=== PATIENT | female | born 1945 | race Caucasian/White ===

== ENCOUNTER 2018-10-08 08:49 | Day surgery (SDC) | payer MEDICARE, OTHER, SELFPAY ==
[2018-10-08 09:51] VITALS: BP 112/62; PULSE 65; RESP 16; TEMP 36.9; O2SAT 100; BMI 24.7
[2018-10-08] MEDS: PROPARACAINE 0.5% OPHTH SOL 2 DROPS EYE-OP (10:13)
[2018-10-08] MEDS: CATARACT EYE COMPOUND (10 DROPS/SYRINGE) 3 DROPS EYE-OP (10:20)
--- NOTE | 2018-10-08 11:08 | PM.PREOP ---
Pre-operative Note Interval Note History & Physical reviewed/Exam performed by Physician: No Changes to H&P: No
--- NOTE | 2018-10-08 11:08 | PM.OP.1 ---
Operative Date/Time/Diagnoses Pre-op diagnosis: Nuclear Cataract Left eye Post-op diagnosis: same Procedure & Clinicians Surgeon: Elijah Courtney Anesthesia Type: MAC +/- and Sedation Operative Notes Procedure in detail: Patient brought to the operating suite. Tetracaine drops placed in the left eye. Patient was prepped and draped in sterile manner. Wire lid speculum was placed in the eye. Betadine drops were placed on the eye. This was irrigated. Lidocaine jelly was placed on the eye. A paracentesis port was created with a side-port blade. 0.1 mL 1% preservative free lidocaine was injected into the anterior chamber. The anterior chamber was deepened with viscoelastic. 2.6 mm keratome was used to create a temporal clear corneal incision. Cystotome and Utrata forceps were used to create continuous tear capsulorrhexis. Balanced salt solution was used to hydro dissect the nucleus. The phacoemulsification handpiece was inserted and the nucleus was removed using the stop and chop technique. The irrigation aspiration handpiece was inserted and the remaining cortex was removed. Anterior chamber was deepened with viscoelastic. An Pemberton ZCB00 intraocular lens with a power of 16.0 was injected into the capsular bag. Irrigation aspiration handpiece was inserted and the remaining viscoelastic was removed. Incision was hydrated with balanced salt solution and found to be leak free with pressure with Weck-Natividad sponges. 0.1 mL Vigamox injected anterior chamber. 0.3 mL Kenalog 10 mg was injected subconjunctivally. Lid speculum was removed. The patient left the operating room in excellent condition. Complications: none Condition: stable Disposition: same day surgery
[2018-10-08] MEDS: PHENYLEPHRINE/LIDOCAINE VIAL (OR) 0.2 ML EYE-OP (11:31)
[2018-10-08] MEDS: CHONDROIDTIN/SOD HYALURONATE 1.05 ML SYRINGE INTRAOCULA (11:31)
[2018-10-08] MEDS: TRIAMCINOLONE 50 MG/5 ML VIAL INJ (11:31)
[2018-10-08] MEDS: MOXIFLOXACIN OPHTH DROPS 3 ML BOTTLE 2 DROPS INJ (11:31)
[2018-10-08] MEDS: TETRACAINE 0.5% OPHTH DROPS 4 ML 2 DROPS EYE-OP (11:32)
[2018-10-08] MEDS: LIDOCAINE JELLY 2% 5 ML 1 APPLIC TOP (11:32)
[2018-10-08] MEDS: BALANCED SALT IRRIG SOLN NO.2 500 ML, EPINEPHrine 1 MG IRR (11:32)
[2018-10-08 11:40] VITALS: BP 114/65; PULSE 58; RESP 16; TEMP 36.4; O2SAT 100
--- NOTE | 2018-10-08 12:12 | SUR.PHASEII ---
asssited pt to dress, left when ready and left in stable condition.
== END 2018-10-08 12:11 ==
LOC: OR 08:51
PROVIDERS: Visit Provider Ophthalmology
DX: H25.12 Age-related nuclear cataract, left eye (principal); G20 Parkinson's disease
CPT/HCPCS: J0171; J2250; J3010; J3301

== ENCOUNTER 2018-10-22 11:08 | Day surgery (SDC) | payer MEDICARE, OTHER, SELFPAY ==
[2018-10-22 12:37] VITALS: BP 109/73; PULSE 54; RESP 16; TEMP 36.7; O2SAT 98; BMI 23.1
[2018-10-22] MEDS: PROPARACAINE 0.5% OPHTH SOL 2 DROPS EYE-OP (12:46)
[2018-10-22] MEDS: CATARACT EYE COMPOUND (10 DROPS/SYRINGE) 3 DROPS EYE-OP (12:54)
--- NOTE | 2018-10-22 13:24 | PM.PREOP ---
Pre-operative Note Interval Note History & Physical reviewed/Exam performed by Physician: No Changes to H&P: No
--- NOTE | 2018-10-22 13:25 | PM.OP.1 ---
Operative Date/Time/Diagnoses Pre-op diagnosis: Nuclear cataract right eye Procedure & Clinicians Procedure: Cataract Surgery Same procedure as scheduled: Yes Surgeon: Elijah Courtney Anesthesia Type: MAC +/- and Sedation Operative Notes Procedure in detail: Patient brought to the operating suite. Tetracaine drops placed in the right eye. Patient was prepped and draped in sterile manner. Wire lid speculum was placed in the eye. Betadine drops were placed on the eye. This was irrigated. Lidocaine jelly was placed on the eye. A paracentesis port was created with a side-port blade. 0.1 mL 1% preservative free lidocaine was injected into the anterior chamber. The anterior chamber was deepened with viscoelastic. 2.6 mm keratome was used to create a temporal clear corneal incision. Cystotome and Utrata forceps were used to create continuous tear capsulorrhexis. Balanced salt solution was used to hydro dissect the nucleus. The phacoemulsification handpiece was inserted and the nucleus was removed using the stop and chop technique. The irrigation aspiration handpiece was inserted and the remaining cortex was removed. Anterior chamber was deepened with viscoelastic. An Pemberton ZCB00 intraocular lens with a power of 17.5 was injected into the capsular bag. Irrigation aspiration handpiece was inserted and the remaining viscoelastic was removed. Incision was hydrated with balanced salt solution and found to be leak free with pressure with Weck-Natividad sponges. 0.1 mL Vigamox injected anterior chamber. 0.3 mL Kenalog 10 mg was injected subconjunctivally. Lid speculum was removed. The patient left the operating room in excellent condition. Complications: none Condition: stable Disposition: same day surgery
[2018-10-22] MEDS: PHENYLEPHRINE/LIDOCAINE VIAL (OR) 0.2 ML EYE-OP (13:45)
[2018-10-22] MEDS: TRIAMCINOLONE 50 MG/5 ML VIAL INJ (13:46)
[2018-10-22] MEDS: CHONDROIDTIN/SOD HYALURONATE 1.05 ML SYRINGE INTRAOCULA (13:46)
[2018-10-22] MEDS: TETRACAINE 0.5% OPHTH DROPS 4 ML 2 DROPS EYE-OP (13:46)
[2018-10-22] MEDS: MOXIFLOXACIN OPHTH DROPS 3 ML BOTTLE 2 DROPS INJ (13:46)
[2018-10-22] MEDS: LIDOCAINE JELLY 2% 5 ML 1 APPLIC TOP (13:46)
[2018-10-22] MEDS: BALANCED SALT IRRIG SOLN NO.2 500 ML, EPINEPHrine 1 MG IRR (13:47)
[2018-10-22 14:00] VITALS: BP 104/67; PULSE 67; RESP 20; TEMP 37.2; O2SAT 97
[2018-10-22 14:30] VITALS: BP 100/68; PULSE 68; RESP 20; TEMP 37.1; O2SAT 98
== END 2018-10-22 14:13 ==
LOC: OR 11:10
PROVIDERS: Visit Provider Ophthalmology
DX: H25.11 Age-related nuclear cataract, right eye (principal); G20 Parkinson's disease
CPT/HCPCS: J0171; J2250; J3301

== ENCOUNTER 2020-05-08 17:40 | Emergency (ER) | payer MEDICARE, OTHER, SELFPAY ==
--- NOTE | 2020-05-08 | DI.RAD.S_ITS ---
PROCEDURE: XR CLAVICLE LT INDICATIONS: FALL TECHNIQUE: 2 views of the clavicle were acquired. COMPARISON: None. FINDINGS: Bones: There is a comminuted, displaced, impacted, angulated distal left clavicular fracture. The acromioclavicular joint and glenohumeral joints appear intact. Visualized portions of the ribs are intact. Soft tissues: No suspicious soft tissue calcifications. IMPRESSION: Clavicular fracture as above. Dictated by: Marie Tracy M.D. on 05/08/2020 at 19:00 Approved by: Marie Tracy M.D. on 05/08/2020 at 19:01
[2020-05-08 17:53] VITALS: BP 182/83; PULSE 71; RESP 16; TEMP 36.6; O2SAT 99
--- NOTE | 2020-05-08 17:56 | DI.RAD.S_ITS ---
PROCEDURE: XR WRIST LT MIN 3V INDICATIONS: L wrist pain and bruising post fall TECHNIQUE: 3 views of the wrist were acquired. COMPARISON: [facility], CR, XR ELBOW LT 2V, 05/08/2020, 18:06. FINDINGS: Bones: No fractures or dislocations. No suspicious bony lesions. Scaphoid view: The scaphoid is intact. Soft tissues: No suspicious soft tissue calcifications. IMPRESSION: No acute radiographic findings. If pain persists, followup imaging in 5-7 days is recommended to exclude occult fracture. Dictated by: Marie Tracy M.D. on 05/08/2020 at 18:37 Approved by: Marie Tracy M.D. on 05/08/2020 at 18:38
--- NOTE | 2020-05-08 17:56 | DI.RAD.S_ITS ---
PROCEDURE: XR ELBOW LT 2V INDICATIONS: L elbow pain post fall TECHNIQUE: 2 views of the elbow were acquired. COMPARISON: None. FINDINGS: Bones: This is a limited study without true lateral view. No fractures or dislocations. No suspicious bony lesions. Soft tissues: No elbow joint effusion. No suspicious soft tissue calcifications. IMPRESSION: Limited study. No acute radiographic findings. If pain persists, followup imaging in 5-7 days is recommended to exclude occult fracture. Dictated by: Marie Tracy M.D. on 05/08/2020 at 18:34 Approved by: Marie Tracy M.D. on 05/08/2020 at 18:36
--- NOTE | 2020-05-08 17:56 | DI.RAD.S_ITS ---
PROCEDURE: XR SHOULDER LT MIN 2V INDICATIONS: L shoulder pain distal clavical deformity post fall TECHNIQUE: 3 views of the shoulder were acquired. COMPARISON: None. FINDINGS: Bones: There is a displaced, angulated, impacted clavicle fracture. The glenohumeral joint is intact. The acromioclavicular joint is intact. Soft tissues: No suspicious soft tissue calcifications. IMPRESSION: Impacted, comminuted, angulated and displaced clavicular fracture. Dictated by: Marie Tracy M.D. on 05/08/2020 at 18:58 Approved by: Marie Tracy M.D. on 05/08/2020 at 18:59
--- NOTE | 2020-05-08 18:01 | PC.NURSE ---
states has history of Parkinsons and that she needs to take her Carbidopa/Levodopa home medication. Provider Dot confirmed with spouse and patient that it is okay to do so.
--- NOTE | 2020-05-08 18:21 | ED.UPPEXIN ---
HPI - Extremity Injury (Upper) <ENOCH George - Last Filed: 05/08/20 21:02> General Chief Complaint: Extremity Injury, Upper Stated Complaint: Lt shoulder bump and bruising post fall Time Seen by Provider: 05/08/20 17:41 Source: patient Mode of arrival: Family Vehicle Limitations: no limitations History of Present Illness HPI narrative: 75-year-old female with history of dementia and Parkinson's, presents emergency department with her for left shoulder pain post fall. 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 She has bruising on her left shoulder, left elbow, and left wrist. Has been states that she slightly fell on her left cheek. He declines head CT. Patient and deny any other concerning symptoms, denies any behavior change, complete planes of abdominal pain, chest pain, shortness of breath, decreased orientation, unusual gait balance, vomiting, LOC or any other concerns. Related Data Home Medications Medication Instructions Recorded Confirmed alclometasone 1 applic TOPICAL BID 10/08/18 10/22/18 carbidopa-levodopa 1 tab PO Q2H 10/08/18 10/22/18 rivastigmine tartrate 1.5 mg PO BID 10/08/18 10/22/18 Allergies Allergy/AdvReac Type Severity Reaction Status Date / Time morphine AdvReac Severe Irritable Verified 05/08/20 18:00 Review of Systems <ENOCH George - Last Filed: 05/08/20 21:02> Review of Systems Narrative: REVIEW OF SYSTEMS: GENERAL: Denies fever or chills. HENT: No head pain. CARDIOVASCULAR: No chest pain or syncope. RESPIRATORY: No cough. GASTROINTESTINAL: No nausea, vomiting, diarrhea, or constipation. MUSCULOSKELETAL: Complains of left shoulder pain, see HPI. INTEGUMENTARY: No rash, lesions, or pruritus. NEURO: No numbness, tingling. PSYCH: No behavior or mood changes. Patient History <ENOCH George - Last Filed: 05/08/20 21:02> Medical History Dementia (Acute) Social History household members: spouse Smoking Status: Never smoker Smoking Status: Never smoker alcohol intake frequency: holidays/special occasions only Substance Use Type: does not use Exam <ENOCH George - Last Filed: 05/08/20 21:02> Initial Vital Signs Initial Vital Signs: Vital Signs Temperature 97.9 F 05/08/20 17:53 Pulse Rate 71 05/08/20 17:53 Respiratory Rate 16 05/08/20 17:53 Blood Pressure 182/83 H 05/08/20 17:53 Pulse Oximetry 99 05/08/20 17:53 PHYSICAL EXAMINATION: GENERAL: Well groomed, alert, and cooperative. HENT: Normocephalic, atraumatic. EYES: Symmetrical, sclera white, no periorbital swelling. CARDIOVASCULAR: S1 and S2 sounds normal. Regular rate and rhythm, no murmurs, clicks, or bruits. No pedal edema. RESPIRATORY: Normal respiratory rate, trachea midline, airway patent. No stridor, nasal flaring or accessory muscle use. Lungs are clear in all tim. MUSCULOSKELETAL: Mild skin tenting noted to left shoulder over clavicle area, no blanching, pain with palpation. Slight pain with palpation to elbow and wrist, small amount of ecchymosis noted. Skin laceration noted to left wrist. EXTREMITIES: CMS intact. No pedal edema. SKIN: Warm, dry, soft, appropriate color for ethnicity. No lesions, rashes, or wounds. NEURO: Alert oriented to person which is patient's norm. PSYCH: Appropriate affect and mood. <Jovany Moore DO - Last Filed: 05/09/20 00:51> Initial Vital Signs Initial Vital Signs: Vital Signs Temperature 97.9 F 05/08/20 17:53 Pulse Rate 71 05/08/20 17:53 Respiratory Rate 16 05/08/20 17:53 Blood Pressure 182/83 H 05/08/20 17:53 Pulse Oximetry 99 05/08/20 17:53 Course <ENOCH George - Last Filed: 05/08/20 21:02> Course Course Narrative: CONVENTIONS ASSISTANT met with patient, arrange to have home care for patient. I spoke with Dr. Bell, orthopedic who visualized patient in the emergency department, Recommends sling and follow up with clinic. 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 Histamine and patient agreed to plan of care and verbalized understanding. Orders Ordered: ED Orders 05/08/20 17:56 XR elbow LT 2V Stat XR shoulder LT min 2V Stat XR wrist LT min 3V Stat 05/08/20 18:00 Consult to [facility] - [employer] Stat 05/08/20 19:45 Consult to Home Health Stat Discontinued Medications Acetaminophen (Tylenol) 650 mg PO NOW ONE Stop: 05/08/20 20:33 Last Admin: 05/08/20 20:35 Dose: 650 mg Documented by: PHONG Hydrocodone Bitart/Acetaminophen (Vicodin 5/325 Prepack) 1 bottle MISC SEEINSTR ONE Stop: 05/08/20 20:05 Last Admin: 05/08/20 20:17 Dose: Not Given Documented by: JOHN Carbidopa/Levodopa (Sinemet Er 50-200 Tab) 1 each PO NOW ONE Stop: 05/08/20 18:00 Last Admin: 05/08/20 18:13 Dose: Not Given Documented by: PHONG Reevaluation(s) Reevaluation #1: Patient staffed with Dr. Moore performed a tdlk-nd-ldev assessment for home health care as well as visualizing skin tenting. Vital Signs Vital signs: Vital Signs - 8 hr 05/08/20 17:53 05/08/20 18:45 05/08/20 18:52 Temperature 97.9 F Pulse Rate 71 69 72 Respiratory Rate 16 14 Blood Pressure 182/83 H 153/87 H Pulse Oximetry 99 96 92 05/08/20 19:00 05/08/20 19:17 05/08/20 19:30 Temperature Pulse Rate 72 Respiratory Rate Blood Pressure 150/78 H 142/67 H Pulse Oximetry 98 95 <Jovany Moore, DO - Last Filed: 05/09/20 00:51> Orders Ordered: ED Orders 05/08/20 17:56 XR elbow LT 2V Stat XR shoulder LT min 2V Stat XR wrist LT min 3V Stat 05/08/20 18:00 Consult to [facility] - [employer] Stat 05/08/20 19:45 Consult to Home Health Stat Discontinued Medications Acetaminophen (Tylenol) 650 mg PO NOW ONE Stop: 05/08/20 20:33 Last Admin: 05/08/20 20:35 Dose: 650 mg Documented by: PHONG Hydrocodone Bitart/Acetaminophen (Vicodin 5/325 Prepack) 1 bottle MISC SEEINSTR ONE Stop: 05/08/20 20:05 Last Admin: 05/08/20 20:17 Dose: Not Given Documented by: JOHN Carbidopa/Levodopa (Sinemet Er 50-200 Tab) 1 each PO NOW ONE Stop: 05/08/20 18:00 Last Admin: 05/08/20 18:13 Dose: Not Given Documented by: PHONG Vital Signs Vital signs: Vital Signs - 8 hr 05/08/20 17:53 05/08/20 18:45 05/08/20 18:52 Temperature 97.9 F Pulse Rate 71 69 72 Respiratory Rate 16 14 Blood Pressure 182/83 H 153/87 H Pulse Oximetry 99 96 92 05/08/20 19:00 05/08/20 19:17 05/08/20 19:30 Temperature Pulse Rate 72 Respiratory Rate Blood Pressure 150/78 H 142/67 H Pulse Oximetry 98 95 MDM - Extremity Injury (Upper) <ENOCH George - Last Filed: 05/08/20 21:02> Medical Records Attestation: I reviewed the patient's medical records. Lab Data Attestation: I reviewed the patient's lab results. Imaging Data Extremity x-ray #1: Radiologist's Impression: [place] [address] XRay Report Signed Patient: Virginia Felton [facility]#: [id number] : 3Acct:[id number] Age/Sex: 75 / FDate of Service: 05/08/20 Loc: ED Accession Number: [id number] Procedure: XR clavicle LT Ordering Provider: Bel Chris PROCEDURE: XR CLAVICLE LT INDICATIONS: FALL TECHNIQUE: 2 views of the clavicle were acquired. COMPARISON: None. FINDINGS: Bones: There is a comminuted, displaced, impacted, angulated distal left clavicular fracture. The acromioclavicular joint and glenohumeral joints appear intact. Visualized portions of the ribs are intact. Soft tissues: No suspicious soft tissue calcifications. IMPRESSION: Clavicular fracture as above. Dictated by: Marie Tracy M.D. on 05/08/2020 at 19:00 Approved by: Marie Tracy M.D. on 05/08/2020 at 19:01 Extremity x-ray #2: Radiologist's Impression: [address] [address] XRay Report Signed Patient: Virginia Felton [facility]#: [id number] : 3Acct:[id number] Age/Sex: 75 / FDate of Service: 05/08/20 Loc: ED Accession Number: [id number] Procedure: XR elbow LT 2V Ordering Provider: Bel Chris PROCEDURE: XR ELBOW LT 2V INDICATIONS: L elbow pain post fall TECHNIQUE: 2 views of the elbow were acquired. COMPARISON: None. FINDINGS: Bones: This is a limited study without true lateral view. No fractures or dislocations. No suspicious bony lesions. Soft tissues: No elbow joint effusion. No suspicious soft tissue calcifications. IMPRESSION: Limited study. No acute radiographic findings. If pain persists, followup imaging in 5-7 days is recommended to exclude occult fracture. Dictated by: Marie Tracy M.D. on 05/08/2020 at 18:34 Approved by: Marie Tracy M.D. on 05/08/2020 at 18:36 Extremity x-ray #3: Radiologist's Impression: [address] [address] XRay Report Signed Patient: Virginia Felton [facility]#: [id number] : 3Acct:[id number] Age/Sex: 75 / FDate of Service: 05/08/20 Loc: ED Accession Number: [id number] Procedure: XR shoulder LT min 2V Ordering Provider: Bel Chris PROCEDURE: XR SHOULDER LT MIN 2V INDICATIONS: L shoulder pain distal clavical deformity post fall TECHNIQUE: 3 views of the shoulder were acquired. COMPARISON: None. FINDINGS: Bones: There is a displaced, angulated, impacted clavicle fracture. The glenohumeral joint is intact. The acromioclavicular joint is intact. Soft tissues: No suspicious soft tissue calcifications. IMPRESSION: Impacted, comminuted, angulated and displaced clavicular fracture. Dictated by: Marie Tracy M.D. on 05/08/2020 at 18:58 Approved by: Marie Tracy M.D. on 05/08/2020 at 18:59 Extremity 4. : Radiologist's Impression: [address] [address] XRay Report Signed Patient: Virginia Felton [facility]#: [id number] : 3Acct:[id number] Age/Sex: 75 / FDate of Service: 05/08/20 Loc: ED Accession Number: [id number] Procedure: XR wrist LT min 3V Ordering Provider: Bel Chris PROCEDURE: XR WRIST LT MIN 3V INDICATIONS: L wrist pain and bruising post fall TECHNIQUE: 3 views of the wrist were acquired. COMPARISON: [facility], [place], XR ELBOW LT 2V, 05/08/2020, 18:06. FINDINGS: Bones: No fractures or dislocations. No suspicious bony lesions. Scaphoid view: The scaphoid is intact. Soft tissues: No suspicious soft tissue calcifications. IMPRESSION: No acute radiographic findings. If pain persists, followup imaging in 5-7 days is recommended to exclude occult fracture. Dictated by: Marie Tracy M.D. on 05/08/2020 at 18:37 Approved by: Marie Tracy M.D. on 05/08/2020 at 18:38 MDM Narrative Medical decision making narrative: 75-year-old female presents to the emergency department for left shoulder pain post fall. Patient has a significant clavicle fracture, orthopedic, Dr. Bell visualized patient, recommended sling and follow-up. No fractures to elbow or wrist. Discussed CT of head due to fall, patient's and patient declined. There is no visible trauma, patient's mentation status was normal per patient, no change in behavior or any significant concerning symptoms such as LOC or vomiting. Return precautions given for new or worsening symptoms. Patient and agreed to plan of care verbalized understanding. Discharge Plan Departure Patient Disposition: Home Clinical Impression: Clavicle fracture Qualifiers: Encounter type: initial encounter Clavicle location: lateral end Fracture type: closed Fracture alignment: displaced Laterality: left Qualified Code(s): S42.032A - Displaced fracture of lateral end of left clavicle, initial encounter for closed fracture Discharge Date/Time: 05/08/20 20:45 Instructions: DI for Clavicle Fracture-Adult Activity Restrictions/Additional Instructions: Thank you for entrusting me with your care today. As discussed, you have a clavicle fracture. We have given you a sling, please call and schedule an appointment with an orthopedic in the next week. Return emergency department for any new or worsening symptoms. Prescriptions: No Action rivastigmine tartrate 1.5 mg Capsule 1.5 mg PO BID RF: 0 alclometasone 0.05 % Cream 1 applic TOPICAL BID RF: 0 carbidopa-levodopa 25-100 mg Tablet 1 tab PO Q2H RF: 0 Referrals: Ric Bell MD [Physician] - Buzz Colvin DO [Primary Care Provider] - <Jovany Moore DO - Last Filed: 05/09/20 00:51> Cosign ED Attending Cosignature Attestation: I was immediately available in the department for consultation. This documentation has been reviewed and I agree with assessment and plan. Supervised by Jovany Moore DO
[2020-05-08 18:45] VITALS: PULSE 69; O2SAT 96
[2020-05-08 18:52] VITALS: BP 153/87; PULSE 72; RESP 14; O2SAT 92
[2020-05-08 19:00] VITALS: BP 150/78; PULSE 72; O2SAT 98
[2020-05-08 19:17] VITALS: O2SAT 95
[2020-05-08 19:30] VITALS: BP 142/67
--- NOTE | 2020-05-08 19:48 | CM.SWNOTE ---
Addendum entered by Jack Wilder 05/08/20 20:10: 2010- referral faxed to [facility] Original Note: TECHNICAL SERVICE SPECIALIST note TECHNICAL SERVICE SPECIALIST consult requested for patient. Patient is a 75 y/o female who presents to ED with Tarik after a fall in her driveway. Patient has diagnosis of Parkinson's and Dementia. TECHNICAL SERVICE SPECIALIST enters room and speaks with patient and . provides most of the reporting. Patient's reports that patient has taken multiple falls over the past year, and that they have had multiple hospital visits after falls in 2019. reports that they have started some care giving services, but have had difficulty meeting all care goals due to location on [facility]. Patient and verbalize anticipation of additional needs for rehabilitation following this fall. TECHNICAL SERVICE SPECIALIST discusses HH as an option for additional medical support following fall and broken bone. and patient express interest.Family discusses that PCP is in [facility], and accessing PCP immediately to initiate in home services such as PT/OT would be difficult. TECHNICAL SERVICE SPECIALIST staffs with provider ENOCH George, and Dr. Moore. Dr. Moore meets with patient, provides verbal for order of Home Health consult, and signs F2F form for PT, OT, and HH aide. TECHNICAL SERVICE SPECIALIST contacts several agencies, and [facility] confirms that they are accepting patients and able to provide services on [facility]. [facility] staff inform TECHNICAL SERVICE SPECIALIST that they could consult with patient as soon as 05/11. TECHNICAL SERVICE SPECIALIST confirms with patient that this time frame is acceptable and patient agrees. Pl: Patient to d/c to home and TECHNICAL SERVICE SPECIALIST to fax clinicals to [facility] at [phone]. OCTAVIO [place]
[2020-05-08] MEDS: HYDROCODONE/ACET 5/325 PREPACK 1 BOTTLE MISC (20:09)
--- NOTE | 2020-05-08 20:14 | PC.NURSE ---
Dispensed norco ordered by Zuleima KENDALL. Pt's states that she will not tolerate. Wasted as per protocol, SURGICAL SPECIALIST in to speak w/ pt and .
[2020-05-08] MEDS: ACETAMINOPHEN 325 MG TABLET 650 MG PO (20:35)
== END 2020-05-08 20:45 | disposition home or self-care (01) ==
PROVIDERS: Emergency Provider Nurse Practitioner; PCP Student in an Organized Health Care Education/Training Program
DX: S42.032A Displaced fracture of lateral end of left clavicle, initial encounter for closed fracture (principal); W19.XXXA Unspecified fall, initial encounter
CPT/HCPCS: 73000; 73030; 73070; 73110; 99284

== ENCOUNTER → 2020-05-14 16:55 | Outpatient (CLI) | payer MEDICARE, OTHER, SELFPAY ==
[2020-05-14 17:29] LABS: Add Manual Diff / Slide Review NO; Basophils Absolute Auto 100 /uL (0-100); Basophils Percent Auto 0.7 % (0-2); Eosinophils Absolute Auto 100 /uL (0-450); Eosinophils Percent Auto 0.7 % (2-4); Lymphocytes Absolute Auto 800 /uL (1100-4500); Lymphocytes Percent Auto 11.2 % (25-40); Mean Corpuscular HGB Conc 33.4 % (30-36); Mean Corpuscular Hemoglobin 31.4 PG (26-34); Mean Corpuscular Volume 94.1 fL (80-100); Monocytes Absolute Auto 500 /uL (0-900); Monocytes Percent Auto 7.3 % (3-14); Neutrophils Absolute Auto 5800 /uL (1500-7000); Neutrophils Percent Auto 80.1 % (50-75); Platelet Count 321 X10^3/uL (150-400); Red Blood Cell Count 3.82 X10^6/uL (4.0-5.2); Red Cell Distribution Width 15.2 % (11.6-14.8); White Blood Cell Count 7.3 X10^3/uL (4.5-11.0)
[2020-05-14 17:34] LABS: BUN Creatinine Ratio 33.3 (6-22); Blood Urea Nitrogen 19 mg/dL (7-17); Calcium 8.8 mg/dL (8.4-10.2); Carbon Dioxide 32 mmol/L (22-32); Chloride 100 mmol/L (98-107); Estimated Glomerular Filt Rate > 60.0 mL/min (>60); Glucose 117 mg/dL (80-110); HEMOLYSIS < 15 (0-50); Potassium 3.7 mmol/L (3.4-5.1); Sodium 134 mmol/L (137-145)
== END ==
PROVIDERS: PCP Student in an Organized Health Care Education/Training Program; Referring Provider Orthopaedic Surgery Adult Reconstructive Orthopaedic Surgery; Visit Provider Orthopaedic Surgery Adult Reconstructive Orthopaedic Surgery
DX: Z01.818 Encounter for other preprocedural examination (principal); Z01.812 Encounter for preprocedural laboratory examination
CPT/HCPCS: 36415; 80048; 85025; 93005

== ENCOUNTER → 2020-05-18 11:22 | Outpatient (CLI) | payer MEDICARE, OTHER, SELFPAY ==
[2020-05-18 12:01] LABS: COVID19 -Nasal RAPID Negative (Negative)
== END ==
PROVIDERS: PCP Student in an Organized Health Care Education/Training Program; Visit Provider Nurse Practitioner
DX: Z11.59 Encounter for screening for other viral diseases (principal)
CPT/HCPCS: 87635

== ENCOUNTER 2020-05-19 12:47 | Inpatient (IN) | payer MEDICARE, OTHER, SELFPAY ==
[2020-05-17 10:52] VITALS: BMI 18.3
[2020-05-18] VITALS (13 sets, daily range): BP systolic 110–139; BP diastolic 58–74; PULSE 68–105; RESP 12–19; TEMP 36.2–36.6; O2SAT 96–100; BMI 18.3
--- NOTE | 2020-05-18 | DI.RAD.S_ITS ---
PROCEDURE: XR CHEST 1V INDICATIONS: POST OP FOR PNEUMO TECHNIQUE: One view of the chest was acquired. COMPARISON: [facility], CR, XR SHOULDER LT MIN 2V, 05/08/2020, 18:06. [facility], CR, XR CLAVICLE LEFT, 05/14/2020, 15:40. [facility], CR, XR CLAVICLE LT, 05/18/2020, 18:46. FINDINGS: Left arm overlies the inferior chest. Surgical changes and devices: Left clavicle plate and screw fixation. Lungs and pleura: Prominent lung volumes. Suspect emphysematous change. Lungs are clear. No pleural effusions or pneumothorax. Mediastinum: Mediastinal contours appear normal. Heart size is prominent. Bones and chest wall: No suspicious bony lesions. Overlying soft tissues appear unremarkable. IMPRESSION: No pneumothorax demonstrated. Left clavicle plate and screw fixation. Dictated by: Charlie Thompson M.D. on 05/18/2020 at 21:03 Approved by: Charlie Thompson M.D. on 05/18/2020 at 21:06
[2020-05-18] MEDS: LACTATED RINGERS 1,000 ML 42 ML IV ×2 (15:23→18:36)
--- NOTE | 2020-05-18 16:03 | DI.RAD.S_ITS ---
PROCEDURE: XR CLAVICLE LT INDICATIONS: CLAVICLE FRACTURE TECHNIQUE: 2 views of the clavicle were acquired. COMPARISON: [facility], , XR CLAVICLE LT, 05/08/2020, 18:39. FINDINGS: Bones: Intraoperative fluoroscopic views demonstrate ORIF of the left clavicular fracture. Fracture fragments are in near anatomic alignment. IMPRESSION: Intraoperative fluoroscopic views of the left clavicular ORIF. Dictated by: Marie Tracy M.D. on 05/19/2020 at 10:30 Approved by: Marie Tracy M.D. on 05/19/2020 at 10:34
--- NOTE | 2020-05-18 17:10 | PM.PREOP ---
Pre-operative Note COVID-19 COVID-19 status: Negative Result date/Date tested (Pos, Neg/Pending): 05/18/20 Interval Note History & Physical reviewed/Exam performed by Physician: Yes Changes to H&P: No H&P completed within 30 days and has changed as indicated here:: Plan for ORIF L clavicle
[2020-05-18] MEDS: CEFAZOLIN 2 GM/100 ML FROZ.PIGGY IV (17:25)
--- NOTE | 2020-05-18 17:59 | SUR.OPER ---
Beach chair with Maquet shoulder positioner. Lower body on padded OR bed. Head in foam padded head cradle, secured with straps. Non-operative arm secured <90 degrees abduction. Pillow under knees. Safety belt at thigh. Cloth tape over blanket over lower legs.
--- NOTE | 2020-05-18 18:04 | SUR.OPER ---
patient presents to OR with bruising on the back of the right hand, scrapes on the back of her left hand, and bruising aroung the clavicle area and scapula on the left lide
[2020-05-18] MEDS: BUPIVACAINE 0.5% W/ EPI (PF) 30 ML VIAL INJ (18:14)
--- NOTE | 2020-05-18 18:57 | PM.OP.1 ---
Operative Date/Time/Diagnoses Date of procedure: 05/18/20 Time of procedure: 18:57 Pre-op diagnosis: Left clavicle fracture with skin tenting Post-op diagnosis: same Procedure & Clinicians Procedure: Left calvicle ORIF Same procedure as scheduled: Yes Indications: Patient sustained a fall and had skin tenting over the left clavicle shaft concern for skin compromise. Surgeon: Ric Bell Flight Engineer Instructor: Patrick Friend Anesthesia Type: General Operative Notes Findings: Comminuted left clavicle shaft fracture with skin tenting and blanching of the skin at the fracture site. Old fracture callus and evidence of old malunion. Closure Type: primary Prosthetic devices, grafts, tissues, transplants, or devices: Morrow and nephew EVOS 5 hole superior distal clavicle plate left Estimated Blood Loss (mL): 100 Procedure in detail: Patient was met in the preoperative holding area where the site and side of surgery were marked by MD. Surgical consent was reviewed the preoperative area and signed. The risks of surgery were discussed and reviewed including the risk of infection, damage to local structures such as vessels and nerves, pneumothorax, malunion, nonunion, need for future surgery, incomplete relief of symptoms, etc. patient and the patient's who signed her surgical consent demonstrate understanding and agreed to plan. Patient was then brought back into the operating room where she was induced under general anesthesia the left clavicle was then prepped and draped in normal sterile fashion. Surgical time-out was performed verifying the site and side of surgery as well as the name of the patient. A 7 cm long incision over the shaft of the left clavicle was then made in the skin with a 15. Blade and dissection was carried down to the level of the clavicle with electrocautery. No dental full super clavicular nerve was identified in the course to the clavicle. At this point there was a large spike bone which was cleaned of fracture callus we then identified the distal extent of the clavicle and the skinner for the reduction did not exist. After further investigation appears that there is old fracture callus and appears that she had an old clavicle fracture that is then refractured with increased displacement of the bony spike compromising the skin. After removal of some fracture callus and the bony spike were able to reduce the clavicle shaft. A left superior distal 5 hole Morrow and Nephew equals plate was selected the most medial hole was removed with bolt cutters. The fracture was reduced to the plate using lobster claws and the distal holes were 2nd sequentially drilled 1st with a cortical screw and subsequently with locking screws. We then turned our attention to the shaft side where a cortical screw was placed to compress the plate to the bone followed by 3 locking screws. Fluoroscopy was brought in for verification of reduction as well as to ensure that our screws were in appropriate position without being too long. Overall satisfied with the reduction and fixation. The wound was then irrigated with copious normal saline and then local anesthetic was injected into the. Surgical soft tissues the wound was then closed with in layered fashion with 2-0 Vicryl followed by 3-0 Stratafix in the subcuticular layer followed by Dermabond and sterile dressings. Complications: none Post-operative Condition: stable Disposition: PACU Plan for aftercare: 24 hours post-op ross horne NWB LUE
--- NOTE | 2020-05-18 20:14 | SUR.PHASEI ---
Report called to clarissa Gonzalez on floor. Pt responding to questions well and denies pain or nausea but will not open her eyes and seems groggy. Lisa requesting for us to hold pt for another 20 to 30 minutes. Report to CLARISSA Francois.
--- NOTE | 2020-05-18 20:37 | SUR.PHASEI ---
Patient taken up to room in stable condition. Left in room in stable condition with receiving RN at bedside
[2020-05-18] MEDS: LACTATED RINGERS 1,000 ML 75 ML IV (22:37)
[2020-05-18] MEDS: CEFAZOLIN 1 GM/50 ML FROZ.PIGGY IV (22:37)
--- NOTE | 2020-05-18 23:37 | PC.NURSE ---
Arrived on unit around 2100 via bed from PICU. VSS. Patient has a history of dementia and parkinsons. She responds to verbal commands with moaning. She has not opened her eyes yet since prior to surgery. Her Tarik is at bedside and says she tends to sundown at night. She was unable to arouse enough to take her PO meds. LR running at 75 into PIV, right forearm.
[2020-05-18] MEDS: ACETAMINOPHEN 325 MG TABLET 975 MG PO (23:53)
[2020-05-18] MEDS: CARBIDOPA-LEVODOPA 25/100 TABLET 1 EACH PO (23:53)
[2020-05-19] VITALS (7 sets, daily range): BP systolic 114–138; BP diastolic 65–76; PULSE 79–118; RESP 16–20; TEMP 36.4–37.7; O2SAT 94–100
--- NOTE | 2020-05-19 00:01 | PC.NURSE ---
Addendum entered by Ronal Sanchez R.N. 05/19/20 07:07: Straight cath, removed 425mL Addendum entered by Ronal Sanchez R.N. 05/19/20 05:49: received orders from Dr. Clemons to straight cath pt. Addendum entered by Ronal Sanchez R.N. 05/19/20 05:39: bladder scan = 407 Addendum entered by Ronal Sanchez R.N. 05/19/20 04:00: Pt's woke to explain pt's very complex home medication regimen. The home med list was altered w/notes on each edited med to reflect dosage on the RX bottle. Will pass on to day shift this info. Pt's has all her meds on hand and has been informed that meds need to be sent to the pharmacy in the AM for verification. He stated understanding. Pt was found to be very diaphoretic, but afebrile. Pt's noted that she sleeps very hot and it is not unusual for her to be drenched in sweat when she sleeps. Pt exhibited s/s of pain (grimacing, moaning, HR of 115) while she was being repositioned. Pt also protested vigorously having a pillow placed between her knees. Her tried to place a rolled towel, but pt also refused this attempt. Pt's HR dropped and her face became more relaxed when we were finished repositioning her. Addendum entered by Ronal Sanchez R.N. 05/19/20 01:37: Unable to thoroughly assess CMS. LUE is warm to touch w/cap refill < 2 sec. Pt unable to inform me of sensation and will not move limb. Pt is moving fingers spontaneously. Original Note: Patient mostly non-verbal. Refuses to open eyes. When asked how she was doing she stated, awful and nodded when I said I would get her pain medication. With much resistance, she was able to take tylenol and her carbidopa. She needed continuous prompting to sip water and swallow her pills, which she did successfully with only the meds mentioned above.
[2020-05-19] MEDS: CEFAZOLIN 1 GM/50 ML FROZ.PIGGY IV (05:09)
[2020-05-19] MEDS: CARBIDOPA-LEVODOPA 25/100 TABLET 1 EACH PO ×5 (05:32→21:56)
[2020-05-19 06:16] LABS: Hematocrit 33.9 % (36-46); Hemoglobin 11.1 g/dL (12.0-16.0); Mean Corpuscular HGB Conc 32.8 % (30-36); Mean Corpuscular Hemoglobin 30.6 PG (26-34); Mean Corpuscular Volume 93.4 fL (80-100); Platelet Count 347 X10^3/uL (150-400); Red Blood Cell Count 3.63 X10^6/uL (4.0-5.2); Red Cell Distribution Width 14.9 % (11.6-14.8); White Blood Cell Count 11.3 X10^3/uL (4.5-11.0)
[2020-05-19] MEDS: ACETAMINOPHEN 325 MG TABLET 975 MG PO ×2 (08:43→14:48)
--- NOTE | 2020-05-19 10:45 | PT.IIE ---
Current Diagnoses Fracture of unspecified part of left clavicle, initial encounter for closed fracture (05/18/20) Surgery Performed Operation Date: 05/18/20 16:45 Actual Procedures p ORIF Clavicle Fracture(Left) - Ric Bell MD Surgical History (Last Updated 05/17/20 @ 11:50 by Mar Wadsworth, RN) Hx of bilateral cataract extraction (2018) Medical History (Last Updated 05/17/20 @ 11:47 by Mar Wadsworth RN) Dementia Fall from ground level (05/2020) Fracture of left clavicle (05/2020) Parkinson disease Physical Therapy Inpatient Evaluation/Re-Eval M1 PT/OT-IP Prior Functional Status Start: 05/19/20 12:13 Freq: NEEDED Status: Active Protocol: Document 05/19/20 10:45 AB (Rec: 05/19/20 12:35 AB [email or web address]) Medical Review Prior Functional Status Medical History Reviewed Yes Communication pt is unable to answer questions and follow directions; kept her eyes closed for most of the PT session; per nurse, pt has refused her medications and spouse stated that pt has not had her usual meds for PD Mobility and Gait per spouse: pt requires 24/7 assist; requires assistance with bed mobility, transfers and ambulation. uses a SPC with CGA for ambulation . requires assist with toileting and showers and set up assist for eating/feeding Social History Household Members spouse Living Arrangements House Number of Floors (Floors) Two Floors Number of Stairs To Enter/Railing? no steps to enter 10 steps with L rail ascending to bedroom level Home Environment Standard Height Toilet,Walk in Shower Home Equipment Front Wheel Walker,Four Wheel Walker,Straight Cane,Shower Seat with Backrest,Hand Held Shower,Grab Bars Near Toilet, Grab Bars In Shower Additional Social History Comment pt has spouse to assist her and has a caregiver that comes in 4 days a week for 6 hours a day M2 PT-IP Current Condition Start: 05/19/20 12:13 Freq: NEEDED Status: Active Protocol: Document 05/19/20 10:45 AB (Rec: 05/19/20 12:35 AB [email or web address]) Physical Therapy Current Condition Current Condition Evaluation Date 05/19/20 Treatment Diagnosis L clavicle fx s/p ORIF; difficulty in walking Onset Date 05/18/20 Precautions Brace LUE sling Weight Bearing Status Weight Bearing Status Non-Weight Bearing Allowed Weight Bearing Amount (enter % LUE NWB or #) (%) M3 PT-IP Subjective Start: 05/19/20 12:13 Freq: NEEDED Status: Active Protocol: Document 05/19/20 10:45 AB (Rec: 05/19/20 12:35 AB [id number]) Subjective Physical Therapy Visit Type Type Initial Evaluation Visit Start Time 10:45 Visit Stop Time 11:38 Total Visit Minutes 53 Number of LADLE CAR OPERATOR Visits 0 M4 PT-IP Mobility and Gait Start: 05/19/20 12:13 Freq: NEEDED Status: Active Protocol: Document 05/19/20 10:45 AB (Rec: 05/19/20 12:35 AB [email or web address]) PT-Bed Mobility Assessment Supine to Sit Supine to Sit Total Assistance,2 Person Assistance,Head of Bed Elevated Sit to Supine Sit to Supine Total Assistance,2 Person Assistance Scooting Scooting to Edge of Bed Dependent Scooting Up and Down in Bed Dependent PT-Transfer Assessment Comments Mobility Comments pt supine in bed with BLE in flexed/adducted position and increase lateral side bending of neck to the R. found sling off to the posterior side of the arm. but with difficulty following directions and has eyes closed for most of the tx session. nurse stated that pt refused her medications. spouse stated that pt has not had her PD medications. spouse stated that he is not too happy and is concerned about pt's position and surgery effects and pt not taking her medication. informed spourse regarding PT goals and will reposition pt and agreed. initiated inhibition techniques and postioning pt to decrease flexor/adductor tone. pt with increase resistance to positioning. completed supine to sit total A x 2 and max cues. pt with increase posterior trunk leaning and unable follow directions. sat on EOB max A x 2. attempted positioning for trunk balance but pt with increase resistance and tone. completed sit to supine total A x 2 and max cues. completed rolling L<> R total A x 2 and max cues for pad change and positioning. call light and table placed within reach. Left pt with spouse. informed nurse regarding pt's mobility. Gait Assessment Comments Gait Comments unable at this time PT-Balance Assessment Sitting Balance and Reactions Static Sitting Balance Ability Poor Dynamic Sitting Balance Ability Poor Standing Balance and Reactions Device Used n/t M5 PT-IP Objective Assessments Start: 05/19/20 12:13 Freq: NEEDED Status: Active Protocol: Document 05/19/20 10:45 AB (Rec: 05/19/20 12:35 AB [id number]) Orientation Orientation/Cognition Level of Alertness Lethargic Strength Comments Strength Comments pt unable to follow directions and MMT not tested Muscle Tone Muscle Tone WNL No Muscle Tone Location Bilateral Lower Extremity Type of Tone Rigidity Severity of Tone Severe M6 PT-IP Treatment Start: 05/19/20 12:13 Freq: NEEDED Status: Active Protocol: Document 05/19/20 10:45 AB (Rec: 05/19/20 12:35 AB [id number]) Physical Therapy Treatment Education Education Provided Safety Other Treatments Other Treatment Performed PROM/inhibition techniques conducted: cervical, BLE and UE M7 PT-IP Assessment and Plan Start: 05/19/20 12:13 Freq: NEEDED Status: Active Protocol: Document 05/19/20 10:45 AB (Rec: 05/19/20 12:35 AB [id number]) PT Summary Assessment and Plan Potential Rehabilitation Potential Fair Status of Condition at Evaluation Evolving Summary Impairments Pain,ROM,Strength,Balance, Coordination,Sensation,Tone, Cognition,Bed Mobility, Transfers,Gait,Activity Tolerance Assessment Summary pt requiring total A x 2 and max cues. pt has not taken any of her PD medication and has rigidity. pt also unable to follow directions at this time. PT conducted and proper bed positioning completed as well as PROM/inhibition techniques to decrease tone and also be able to position pt better in bed. pt will need SNF rehab at this time. will continue to assess progress. Goals Bed Mobility Goal Moderate Assistance Transfer Goal Moderate Assistance,Cane Gait Goal Moderate Assistance,Cane,Lamine Walker Gait Distance 50 Other Goals up/down 10 steps L rail mod A Days to Meet Goals 10 Frequency of Treatment Frequency Of Treatment Once a Day Treatment Plan Physical Therapy Treatment Plan Bed Mobility Training,Transfer Training,Gait Training, Therapeutic Exercise,Balance Retraining,Post Op Education, Discharge Planning,Hot or Cold Pack,Neuromuscular Re-ed, Coordination Retraining,Manual Therapy Other Recommendations and Next Treatment transfers Focus Recommendations To Nursing Amount of Assist Needed Mechanical Lift Discharge Recommendations PT Discharge Recommendations SNF Rehab Transportation Needs at Discharge Stretcher/Ambulance
--- NOTE | 2020-05-19 11:40 | PM.PNPO.1 ---
Subjective Subjective Date Patient Seen: 05/19/20 Time Patient Seen: 11:40 Interval history: Patient resting comfortably in bed. Denied pain. When I returned for follow-up to hours later she was at bedside with physical therapy. Exam Vital Signs (past 8 hours): - 05/19/20 04:22 05/19/20 06:45 05/19/20 08:38 Temperature 97.6 F 99.9 F H 98.9 F Pulse Rate 117 H 113 H Respiratory Rate 18 17 Blood Pressure 137/73 128/76 Pulse Oximetry 97 97 Oxygen Delivery Method Room Air Oxygen Flow Rate 0 Narrative Exam Narrative: Patient sitting at bedside with physical therapy. Her dressing was clean, dry and intact. Neurovascular status was intact distal left upper extremity. Objective Labs Result Diagrams: 05/19/20 05:28 Labs: Laboratory Results - last 24 hr 05/19/20 05:28 WBC 11.3 H RBC 3.63 L Hgb 11.1 L Hct 33.9 L MCV 93.4 MCH 30.6 MCHC 32.8 RDW 14.9 H Plt Count 347 Assessment & Plan Post-op Postoperative Procedures: Procedures Operation Date: 05/18/20 16:45 Actual Procedures Side Surgeon p ORIF Clavicle Fracture Left Ric Bell MD postop day 1 status post open reduction internal fixation left clavicle fracture continue sling left upper extremity. Nonweightbearing left upper extremity. Patient does have Parkinson's and she has been slow to progress as she needs to get back onto her regular scheduled Parkinson's meds. She also has rather sedated this morning likely due to surgery yesterday evening and taken time for anesthesia to wear off.
--- NOTE | 2020-05-19 11:46 | PC.NURSE ---
Addendum entered by Cee Natarajan R.N. 05/19/20 14:55: Patient took her 1230 dose of rytary at 1430. Her daughter is a big comfort to her, and is helpful with medication. She is also getting her 1500 dose of tylenol down now, this has been crushed and put into apple sauce. Addendum entered by Cee Natarajan R.N. 05/19/20 14:14: Patient bladder scanned at 1310 and had only 180cc in her bladder. SHERMAN Melvin aware and states that we can wait to see if patient is able to void, recheck bladder scan and then in/out cath if she has above 400cc in her bladder. She is not taking po or fluids well. She does have LR at 75cc/hr infusing. Resting comfortably. Did not take much of her po medications today, accept tylenol this morning and one carb/levodopa. Cool cloth placed on her head, her temp was 99. Patient does sweat a lot, espcially at night time. Patients left, and it has been arranged that her daughter is coming in now and will be able to stay the night tonight. Original Note: Assess- Patient is alert but confused. She will answer simple questions. She has Parkinsons and hx of dementia. Patient takes a lot of different medications for her Parkinsons disease throughout the day. She has refused her Rytary this am and only took 2 tylenol and 1 carvidopa/levidopa. There was a pill found in her bed, unsure of when this happened. Patient has an aquacel to her l.shoulder that is cdi with an arm sling in place. Patient has not voided and will be bladder scanned around 1300, we do have orders to do an in/out cath if necessary. She tried to work with physical therapy but is not following commands, she was able to sit up at side of bed for a few minutes but pt had to do it themselves as patient was not even able to help. Daughter is going to come in later to stay with patient and this has been okayed by the coordinator. still here and has not had any sleep, he has been helpful with patient. She is back to bed and lying down. Grimaces as if in pain, but will not taking much po.
--- NOTE | 2020-05-19 12:08 | CM.DANOTE ---
Patient is a 75 year old female who was admitted on 05/18/20 for ORIF L Clavicle Fx. Pt has [facility] and [employer] for insurance and her PCP is Dr. Buzz Colvin. EMR was reviewed. Pt with a hx of Parkinsons. Per Ortho PA, pt continues to be quite sedated from her anesthesia and currently not stable for discharge and pending pt's progress Ortho would be agreeable with HH referral. Per PT, pt currently max assist and not alert enough to follow commands/directives and pending pt's ability to clear and participate, currently recommending SNF at d/c. OT ordered and pending. SW met bedside with pt and spouse as PT was finishing initial eval and SW explained role and pt confirms that he and his live on [facility] in a converted barn with their bathroom and bedroom on the second floor. They have bedside commode and 4WW. Local supportive son is nearby and provides assist when needed and they have an adult Dtr who has been available at times to come up and stay for assist after pt initially fell. They currently have a PP CG who comes 4x a week for 6 hours that spouse finds immensely helpful but since pt's initial fall 1 week ago when she initially fx her clavicle, pt has needed increased assist. At baseline pt has managed the stairs and ambulation well with SBA but since fall has needed 1PA for stairs and mobility and then had second fall that led to the need for surgery on her clavicle yesterday. Spouse denies that pt has any hx of HH or SNF but they had been in the process with getting HH set up but it had not started yet. SW provided the HH/SNF Choice List and discussed HH services and frequency as well as SNF rehab and the need for pt to be Inpt Status for Medicare to cover the cost. Spouse acknowledges understanding and confirms that the past few weeks with the pt have been quite difficult and he is exhausted. SW discussed the plan of pt continuing to work with PT/OT as she clears from anesthesia towards making a safe plan for d/c. Spouse aware that [facility] only agency that currently covers [facility]. Plan: SW to follow closely later today or in the morning to determine if pt clears enough to work further with PT/OT and is able to take her Parkinsons medications towards determining d/c planning needs of HH vs SNF. UR working to determine if pt OBS vs Inpt Status. No referrals made at this time as too early to determine needs and spouse reviewing SNF list. OCTAVIO Díaz Discharge Planning/Care Management CM Discharge Assessment Start: 05/19/20 12:03 Freq: Status: Active Protocol: Document 05/19/20 12:04 BF (Rec: 05/19/20 12:07 BF [id number]) Discharge Planning Assessment Assigned Station Installer OCTAVIO Rivera DPOA/Assigned Designee Name spouse Tarik Contact Information [phone] Advance Directives? Yes Advance Directives on File Yes History Provided By Significant Other,Medical Record Has Patient been admitted in last 30 No days? Prior Living Arrangements House Household Members spouse,family,children Type of transporation used prior to Relies on Others admit Independent with ADL's No Is patient alert and oriented? Yes Needs Assistance With Meal Prep,Managing Medications ,Home Chores / Shopping Caregiver for Another No DME Already Rented / Owned FWW / Walker,Bedside Commode Comment Home with HH vs SNF pending progress Barriers to Discharge No Discharge Plan Alf Facility Transportation Arrangement Spouse bedside and if safe for home can provide transport vs SNF van Additional Comment Pending further PT/OT recommendations Medicare Choice List Provided Yes SNF/HH Preference [facility] for [place] if safe for home Whiteboard Updated in Patient Room with Yes name and ext. # of Station Installer Review Status In Process Please Provide Date Initial DC 05/19/20 Assessment Was Performed Next Review Type Continued Stay Review Pre-Anesthesia Assessment Start: 05/17/20 10:52 Freq: Status: Active Protocol: Document 05/17/20 10:52 CAB (Rec: 05/17/20 11:52 CAB [id number]) Pre-Anesthesia Assessment Patient Information Reviewed Via Chart Review H&P Completed Within 30 Days Yes Primary Care Provider Buzz Colvin Seen Specialist in Last 12 Months Yes Specialist Seen Emergency,Orthopedist Primary Language [employer] Faculty Member Required No Height 157.48 cm Weight 45.359 kg Body Mass Index (BMI) 18.3 Barriers to Learning Memory Comment Hx of Dementia Hx Anesthesia Reactions No Hx Family Anesthesia Reaction No Hx Malignant Hyperthermia No Hx Blood Transfusion Reaction No Anesthesia Review Requested No alcohol intake current alcohol intake frequency holidays/special occasions only Smoking Status Never smoker Substance Use Type does not use Pain Present Pain Reported Musculoskeletal Symptoms Limited Range of Motion, Radiating Pain into Limb History of Falling (Recent or History of Yes ) Patient is completely paralyzed or No completely immobile Prosthesis or Orthotic Device Cane Is patient on oxygen? No Does patient have IVY/SOB No Hx Sleep Apnea No CPAP/BIPAP use not prescribed Currently Taking a Beta Radha No Hx Chest Pain No Hx SOB No Hx Syncope or Dizziness No Anti-Coagulant Therapy No Has a Marketing Compliance Manager No Cardiac Testing No Hx Pacemaker/ICD No Pacemaker Rep Required? No Urinary Catheter Present No Hx Urinary Self Catheterization No Diabetes No Patient No Lactating No Presence of External or Internal Medical Yes: Bilateral eye lens Devices Have you had any close contact with Unknown someone diagnosed with COVID-19? Marital Status Lives With spouse Patient Discharge Plan Description Return Home Comment Lives on [facility] Advance Directives? Yes
[2020-05-19] MEDS: LACTATED RINGERS 1,000 ML 75 ML IV (13:33)
[2020-05-19] MEDS: RYTARY 2 EACH PO ×3 (14:34→23:14)
[2020-05-19] MEDS: RIVASTIGMINE TARTRATE 4.5 MG 4.5 EACH PO (18:10)
[2020-05-19] MEDS: DOCUSATE 100 MG CAPSULE PO (20:22)
[2020-05-19] MEDS: ASPIRIN EC 81 MG TABLET PO (20:22)
[2020-05-20 00:15] VITALS: BP 109/66; PULSE 76; RESP 16; TEMP 36.6; O2SAT 98
[2020-05-20] MEDS: LACTATED RINGERS 1,000 ML 75 ML IV (02:21)
--- NOTE | 2020-05-20 02:48 | PC.NURSE ---
Patient assessed at 0016. Is alert but oriented only to self, birthdate and place. Is very soft spoken and has difficulty with word finding. Breath sounds CTA with RA sat of 98%. Tremors noted related to Parkinson's. HRR. Denies nausea. BT present and abdomen is soft. Voiding without incontinence this shift and is assisted to BSC using walker and 1 assist. Assisting to reposition q2h. Aquacel dressing to left shoulder is intact with small area of shadow drainage. Scattered bruises on all extremities and scabbed abrasion noted on left hand. FLACC score is 0. Placed bilateral calf SCD's but when up to commode at 0230 requested to leave them off. CMS intact. Not wearing sling as reported that patient does not tolerate use of sling. Trace bilateral pedal edema. Fall risk score is high and bed alarm is activated. Daughter rooming in.
[2020-05-20] MEDS: RYTARY 2 EACH PO ×4 (04:53→22:53)
[2020-05-20 05:45] VITALS: BP 116/72; PULSE 72; RESP 12; TEMP 36.6; O2SAT 100
[2020-05-20 07:30] VITALS: BP 127/75; PULSE 72; RESP 15; TEMP 36.7; O2SAT 97
--- NOTE | 2020-05-20 07:37 | PM.PNPO.1 ---
Subjective Subjective Date Patient Seen: 05/20/20 Time Patient Seen: 07:37 Interval history: POD #2 s/p ORIF left clavicle fracture with Dr. Bell. Patient resting comfortably in bed. Her daughter is in the room as well. She reports her mother is able to use bedside commode and mobilized around room yesterday. She also reports her mother is catching up on parkinson's medication. Exam Vital Signs (past 8 hours): - 05/20/20 00:15 05/20/20 05:45 Temperature 97.9 F 97.9 F Pulse Rate 76 72 Respiratory Rate 16 12 Blood Pressure 109/66 116/72 Pulse Oximetry 98 100 Oxygen Delivery Method Room Air Oxygen Flow Rate 0 Narrative Exam Narrative: Patient resting in bed comfortably. Dressing on left clavicle is CDI. SILT throughout BUEs. Radial pulses symmetrical. Objective Labs Result Diagrams: 05/19/20 05:28 Assessment & Plan Post-op Postoperative Procedures: Procedures Operation Date: 05/18/20 16:45 Actual Procedures Side Surgeon p ORIF Clavicle Fracture Left Ric Bell MD Postop day 2 status post open reduction internal fixation left clavicle fracture continue sling left upper extremity. Nonweightbearing left upper extremity. Patient does have Parkinson's and she has been slow to progress as she needs to get back onto her regular scheduled Parkinson's meds. Daughter reports that Virginia is a lot more alert than yesterday. Virginia was able to answer questions today. Continue to mobilize with PT. Discharge plan will likely either be SNF vs Home health services.
[2020-05-20] MEDS: RYTARY 3 EACH PO (08:32)
--- NOTE | 2020-05-20 10:18 | PC.NURSE ---
This MANAGER FRONT attempted to repostition Pt., but Pt. refused. Pt. was very agitated and requested to hold this MANAGER FRONT's hand. Pt. then began to squeeze and tried to bend MANAGER FRONT's fingers back out of anger. MANAGER FRONT pulled hand away and told Pt. to not hurt her and to talk about what she wants instead of trying to hurt people. Reported to RN, Kristina Hein
--- NOTE | 2020-05-20 10:35 | PT.IPTN ---
Current Diagnoses Fracture of unspecified part of left clavicle, initial encounter for closed fracture (05/19/20) Surgery Performed Operation Date: 05/18/20 16:45 Actual Procedures p ORIF Clavicle Fracture(Left) - Ric Bell MD Physical Therapy Treatment Note M2 PT-IP Current Condition Start: 05/19/20 12:13 Freq: NEEDED Status: Active Protocol: Document 05/19/20 10:45 AB (Rec: 05/19/20 12:35 AB [id number]) Physical Therapy Current Condition Current Condition Evaluation Date 05/19/20 Treatment Diagnosis L clavicle fx s/p ORIF; difficulty in walking Onset Date 05/18/20 Precautions Brace LUE sling Weight Bearing Status Weight Bearing Status Non-Weight Bearing Allowed Weight Bearing Amount (enter % LUE NWB or #) (%) M3 PT-IP Subjective Start: 05/19/20 12:13 Freq: NEEDED Status: Active Protocol: Document 05/20/20 10:35 AB (Rec: 05/20/20 13:08 AB [email or web address]) Subjective Physical Therapy Visit Type Type Treatment Note Visit Start Time 10:35 Visit Stop Time 11:04 Total Visit Minutes 29 Number of BLIND INSTALLER Visits 0 Physical Therapy Visit Comments Patient Comments spouse in room with pt. Therapy Pain Assessment Pain When Pain Assessed During Mobility Location Bilateral Leg Scale Used pain scale not stated Pain Behaviors Facial Grimacing,Guarding, Holding Area,Restlessness, Wincing Pain Management Techniques Distraction,Modification of Treatment,Re-positioning, Timing of Activity with Medications M4 PT-IP Mobility and Gait Start: 05/19/20 12:13 Freq: NEEDED Status: Active Protocol: Document 05/20/20 10:35 AB (Rec: 05/20/20 13:08 AB [id number]) PT-Bed Mobility Assessment Supine to Sit Supine to Sit Total Assistance,2 Person Assistance Sit to Supine Sit to Supine Total Assistance,2 Person Assistance Scooting Scooting to Edge of Bed Dependent Scooting Up and Down in Bed Dependent PT-Transfer Assessment Comments Mobility Comments pt in bed with eyes closed with B hip/knees bent and pt side lying on the R. spouse in room. pt did not have her sling on and spouse stated that pt is more comfortable without the sling and wants the sling off pt. pt continues to be resistive and unable to follow instructions. conducted PROM on BLE but resistance and pt getting agitated and trying to lightly hit/grab PT's hand. completed supine to sit total A x 2. pt with initial max A for sitting balance with increase posterior leaning. repositioned pt in sitting total A x 2 and was able to maintain sitting on EOB CGA but after ~ 5 min started to lay back in bed. Spouse attempted to give pt her medications but unsuccessful. assisted pt in bed with total A x2 . positioned in bed. tried to position pt on her back per spouse's request but pt keeps rolling to her R. call light and table placed within reach. left pt with spouse. M5 PT-IP Objective Assessments Start: 05/19/20 12:13 Freq: NEEDED Status: Active Protocol: Document 05/19/20 10:45 AB (Rec: 05/19/20 12:35 AB [id number]) Orientation Orientation/Cognition Level of Alertness Lethargic Strength Comments Strength Comments pt unable to follow directions and MMT not tested Muscle Tone Muscle Tone WNL No Muscle Tone Location Bilateral Lower Extremity Type of Tone Rigidity Severity of Tone Severe M6 PT-IP Treatment Start: 05/19/20 12:13 Freq: NEEDED Status: Active Protocol: Document 05/20/20 10:35 AB (Rec: 05/20/20 13:08 AB [id number]) Physical Therapy Treatment Education Education Provided Safety Other Treatments Other Treatment Performed prom BLE M7 PT-IP Assessment and Plan Start: 05/19/20 12:13 Freq: NEEDED Status: Active Protocol: Document 05/20/20 10:35 AB (Rec: 05/20/20 13:08 AB [id number]) PT Summary Assessment and Plan Potential Rehabilitation Potential Fair Summary Impairments Pain,ROM,Strength,Balance, Coordination,Sensation,Tone, Cognition,Bed Mobility, Transfers,Gait,Activity Tolerance Progress Towards Goals Slow Progress due to Medical Issues,Slow Progress - Other Assessment Summary pt continues to have difficulty keeping eyes open and follow instructions. pt is more alert compared to yesderday but is more resistive and agitated during mobility. pt continues to be resistive and not take her meds on time affecting cognition, PD symptoms and mobility. will continue to assess progress but pt will require SNF rehab. Goals Bed Mobility Goal Moderate Assistance Transfer Goal Moderate Assistance,Cane Gait Goal Moderate Assistance,Cane,Lamine Walker Gait Distance 50 Other Goals up/down 10 steps L rail mod A Days to Meet Goals 10 Frequency of Treatment Frequency Of Treatment Once a Day Treatment Plan Physical Therapy Treatment Plan Bed Mobility Training,Transfer Training,Gait Training, Therapeutic Exercise,Balance Retraining,Post Op Education, Discharge Planning,Hot or Cold Pack,Neuromuscular Re-ed, Coordination Retraining,Manual Therapy Other Recommendations and Next Treatment transfers Focus Recommendations To Nursing Amount of Assist Needed Mechanical Lift Discharge Recommendations PT Discharge Recommendations SNF Rehab Transportation Needs at Discharge Stretcher/Ambulance
--- NOTE | 2020-05-20 11:18 | PC.NURSE ---
Day shift: Pt has been sleepy and uncooperative this AM. She did take he full dose of Rytary but her other AM meds she said No. Pt's spouse in room for this and he also attempted to give her the meds but she would not take. She is not cooperative when she has to be moved repositioned. Call light in reach.
[2020-05-20 12:08] VITALS: BP 94/65; PULSE 84; RESP 15; TEMP 36.7; O2SAT 99
[2020-05-20] MEDS: SERTRALINE 50 MG TABLET 25 MG PO (12:17)
[2020-05-20] MEDS: RIVASTIGMINE TARTRATE 4.5 MG 4.5 EACH PO ×2 (12:18→17:47)
--- NOTE | 2020-05-20 13:48 | OT.IP.EVAL ---
Current Diagnoses Fracture of unspecified part of left clavicle, initial encounter for closed fracture (05/19/20) Surgery Performed Operation Date: 05/18/20 16:45 Actual Procedures p ORIF Clavicle Fracture(Left) - Ric Bell MD Past Medical History (Last Updated 05/17/20 @ 11:47 by Mar Wadsworth, CLARISSA) Dementia Fall from ground level (05/2020) Fracture of left clavicle (05/2020) Parkinson disease Surgical History (Last Updated 05/17/20 @ 11:50 by Mar Wadsworth RN) Hx of bilateral cataract extraction (2018) Occupational Therapy Inpatient Evaluation/Re-Eval M1 PT/OT-IP Prior Functional Status Start: 05/20/20 14:49 Freq: NEEDED Status: Active Protocol: Document 05/20/20 08:56 [facility] (Rec: 05/20/20 15:26 [facility] [id number]) Medical Review Prior Functional Status Medical History Reviewed Yes Communication pt is unable to answer questions and follow directions; kept her eyes closed for most of the PT session; per nurse, pt has refused her medications and spouse stated that pt has not had her usual meds for PD Mobility and Gait per spouse: pt requires 24/7 assist; requires assistance with bed mobility, transfers and ambulation. uses a SPC with CGA for ambulation . requires assist with toileting and showers and set up assist for eating/feeding Activities of Daily Living and IADL's Pt's assist for set-up of food and grooming needs. Pt needing assist for dressing, toileting and showers, mainly for sequencing of tasks and for completeness due to pt's decreased cognition. Social History Household Members spouse,family,children Living Arrangements House Number of Floors (Floors) Two Floors Number of Stairs To Enter/Railing? no steps to enter 10 steps with L rail ascending to bedroom level Home Environment Standard Height Toilet,Walk in Shower Home Equipment Front Wheel Walker,Four Wheel Walker,Straight Cane,Shower Seat with Backrest,Hand Held Shower,Grab Bars Near Toilet, Grab Bars In Shower Additional Social History Comment pt has spouse to assist her and has a caregiver that comes in 4 days a week for 6 hours a day M2 OT-IP Current Condition Start: 05/20/20 14:49 Freq: Status: Active Protocol: Document 05/20/20 08:56 [facility] (Rec: 05/20/20 15:26 [facility] [id number]) Occupational Therapy Current Condition Current Condition Evaluation Date 05/20/20 Treatment Diagnosis Left Clavicle fx s/p ORIF, NWB LUE Diagnosis Onset Date 05/19/20 Weight Bearing Status Weight Bearing Status Non-Weight Bearing Allowed Weight Bearing Amount (enter % NWB LUE, Sling on LUE or #) (%) M3 OT- IP Subjective and Pain Start: 05/20/20 14:49 Freq: Status: Active Protocol: Document 05/20/20 08:56 [facility] (Rec: 05/20/20 15:26 [facility] [id number]) OT- Subjective Occupational Therapy Visit Type Type Initial Evaluation Visit Start Time 08:56 Visit Stop Time 13:48 Total Visit Minutes 62 Notes Pt seen from [id number], [id number] Occupational Therapy Visit Comments Patient Comments Pt's present during OT eval. Pt seen in the PM due to pt not alert in the AM. Patient/Caregiver Goals would like pt to go home if able to provide pt enough assist at home. OT Pain Assessment Pain When Pain Assessed During Mobility Pain Present Pain Present Unable to Respond FLACC Pain Scale Face Occasional grimace/frown M4 OT- IP ADL's Start: 05/20/20 14:49 Freq: Status: Active Protocol: Document 05/20/20 08:56 [facility] (Rec: 05/20/20 15:26 [facility] [id number]) OT [id number] Comments OT Self-Feeding Comments Per nursing aid , pt able to feed herself during lunch. OT ADL-Grooming General Evaluation Grooming Ability Minimal Assistance Areas Needing Assistance Combing/Brushing Hair Comments OT Grooming Comments Pt needing assist to help comb her hair with brush. Pt needing cues to assist for sequencing of tasks for grooming needs. OT ADL-Oral Care General Eval Oral Care Ability Standby Assistance Areas of Assistance Retrieving/Set-Up of Items OT ADL-Dressing General Eval Lower Body Dressing Ability Moderate Assistance Comments OT Dressing Comments Assist to jonny shoes and pt able to doff her left sock on her own. Able to talk to pt to explain what happened to her and pt then allowed therapist to put on her sling to the LUE. OT ADL-Toileting Comments OT Toileting Comments Pt per nursing aid able to transfer to [facility] with two person assist. OT ADL-Bathing Comments OT Bathing Comments NOt at this time. M5 OT- IP IADL's Start: 05/20/20 14:49 Freq: Status: Active Protocol: Document 05/20/20 08:56 [facility] (Rec: 05/20/20 15:26 [facility] [id number]) OT-Instrumental Activities of Daily Living Home Safety Awareness Awareness of Need for Assistance at Home Decreased Awareness Ability to Problem Solve Emergency Unable to Problem Solve Situations Medication Management Medication Management Caregiver Administers Money Management Money Management Caregiver Provides Assistance Meal Preparation Meal Preparation Caregiver Provides Assist Tool Design Engineer Tool Design Engineer Caregiver Provides Assist Driving Driving Caregiver Provides Assist M6 OT- IP Functional Cognition Start: 05/20/20 14:49 Freq: Status: Active Protocol: Document 05/20/20 08:56 [facility] (Rec: 05/20/20 15:26 [facility] [id number]) Cognitive Factors Limiting Selfcare Function Cognitive Ability Level of Alertness Confusional State Patient Orientation Name Attention Span Ability Capable of Focused Attention, Unable to Focus,Unable to Sustain Attention Ability to Follow Commands Able to Follow One Step Commands with Increased Time, Able to Follow One Step Commands with Repetition Memory Description Short Term Impaired,Elementary School Tutor Impaired,Working Impaired Safety Awareness Underestimates Need for Assistance Problem Solving Ability Unable to Identify Errors, Needs Assist to Identify Solutions Cognitive Comments Cognitive Assessment Comments Pt mainly just orientated to name. Pt needing step by step instructions to help sequence through task of grooming. At times needing tactile cues. Pt does not remember that she had surgery or even aware which clavicle was operated on . Pt needing constant reminders to not put weight on her LUE. OT- Vision and Hearing OT- Hearing Assessment OT- Hearing Assessment WFL M7 OT- IP Mobility and Balance Start: 05/20/20 14:49 Freq: Status: Active Protocol: Document 05/20/20 08:56 [facility] (Rec: 05/20/20 15:26 [facility] [id number]) OT- Bed Mobility Assessment Sit to Supine Sit to Supine Assist Maximum Assistance,1 Person Assistance OT-Transfer Assessment Sit to and From Stand Sit to and from Stand Minimal Assistance Transfers Transfer Ability Maximum Assistance,1 Person Assistance Technique Transfer Destination Bed,Chair Transfer Technique Stand Step Pivot Devices Transfer Assistive Devices Gait Belt,Straight Cane Comments Mobility Comments Pt able to stand with JEN from the hospital bed as already sitting at the edge of the bed with her . Pt using the back of her legs to assist from the bed to helix coil winder addition to JEN from therapist. HAd pt's bring up pt's walking sitck and able to take steps around the bed with MAX A X1 and the walking stick in pt's right hand . Pt tends to cross her legs and leans. Pt's able to assist pt , but pt tending to want to hold onto his hand with her left hand. OT- Gait Assessment Comments Gait Ability Comments MAX X 1 with walking stick in right hand for pt. At this time for nursing best to do two person assist stand pivot transfer only. OT- Balance Assessment Sitting Balance and Reactions Static Sitting Balance Ability Good Dynamic Sitting Balance Ability Fair Standing Balance and Reactions Static Standing Balance Ability Poor Dynamic Standing Balance Ability Poor M8 OT- IP Objective Assessments Start: 05/20/20 14:49 Freq: Status: Active Protocol: Document 05/20/20 08:56 [facility] (Rec: 05/20/20 15:26 [facility] [id number]) OT Gross Range of Motion Upper Extremity Range of Motion Assessment Left Impaired OT-Muscle Tone Assessment Muscle Tone WNL Yes OT Sensation Assessment Edema Edema Comments LUe swollen, pt able to open and close her left hand. M9 OT- IP Assessment and Plan Start: 05/20/20 14:49 Freq: Status: Active Protocol: Document 05/20/20 08:56 [facility] (Rec: 05/20/20 15:26 [facility] [id number]) OT Summary Assessment and Plan Potential Rehabilitation Potential Fair Analytic Complexity at Evaluation Low Summary OT Impairments Pain,Strength,Balance, Functional Cognition, Functional Mobility,Grooming, Dressing,Toileting,Bathing, Toilet Transfers Progress Towards Goals Progressing Toward Goals,Slow Progress due to Pain,Slow Progress due to Medical Issues ,Slow Progress due to Cognition Assessment Summary Pt low complexity. Pt's main barriers are now needing more assist for her balance for mobility at times two person assist, has steps, and will need assist for ADL needs in addition to sling management. At this time, pt's level of mobility in not consistent and would be too much care for to manage and would benefit from skilled rehab versus home with 24/7 assist from and addition assist from another and home health. Goals Self-Feeding Goal Standby Assistance Grooming Goal Standby Assistance Dressing Goal Minimal Assistance Toileting Goal Minimal Assistance Bathing Goal Moderate Assistance Toilet Transfer Goal Minimal Assistance Shower Transfer Goal Minimal Assistance Patient/Caregiver Education Goal Demonstrate Post-Op Precautions,Caregiver Independent Assisting Patient Days to Meet Goals 15 Frequency of Treatment Frequency Of Treatment Once a Day Treatment Plan OT Treatment Plan ADL Training,Functional Cognition Training,Functional Mobility,Patient/Family Education,Discharge Planning Other Treatment Recommendations and Next Caregiver training for sling Treatment Focus management, equipment needs, and how to assist pt for Adl and mobility needs. Discharge Recommendations OT Discharge Recommendations Home with 24/7 Assist,Home Health,SNF Rehab Home Equipment Needs [facility] Transportation Needs at Discharge Private Vehicle,Wheelchair/ Cabulance
[2020-05-20] MEDS: DOCUSATE 100 MG CAPSULE PO (14:47)
[2020-05-20] MEDS: CARBIDOPA-LEVODOPA 25/100 TABLET 1 EACH PO ×3 (14:47→20:11)
--- NOTE | 2020-05-20 14:56 | CM.DPC ---
DCP: continued: case received, EMR reviewed and met with pt and her in followup to d/c planning. OF note: pt was seen in the ER on 05/08 by OCTAVIO Santiago who initiated a referral to [facility]. His full note reviewed prior to meeting with pt and Tarik today. Confirmed that [facility] had not been out yet to open pt to service. They had planned to see pt 05/17 but this was cancelled as pt was going into the hospital 05/18 to repair fractured clavical. Intake person confirms that full referral info including F/Face and HH orders will be needed. COLOR CONTROL OPERATOR sending referral pack now. Pt has worked only a bit with PT and OT and has been limited by the lag in getting her on her Parkinson's medication. At this point therapy is wondering about snf d/c. Discussed this with Tarik as he is clearly spokesperson for his and specifics of how this works at snf in era of COVID. Tarik acknowledges that he or someone is with pt 07/02 22/01 at home and that having her alone in a room by herself in snf would likely cause more harm than good. Discussed HH and care-giving options and will provide Tarik with info on pvt care-giving agencies. He will call his daughter Venita in [place] who will likely come up to stay and help. His son, AILEEN and their 2 young children do live in the home on [address] but work and are limited in how much they can help.surinder Montanez admits to exhaustion and has been trying to put together a good plan going forward for months. discussion was held in Team Rounds today with ? of palliative care consult need. As per directed by executive sales manager have spoken with Ortho SHERMAN Blackman who states that this would be a discussion that should be followed up by pt's PCP: Jessie Colvin: [place]. The focus for this stay will be on a d/c to appropriate setting for pt's recovery post surgery. P: will follow up tomorrow.
--- NOTE | 2020-05-20 15:01 | CM.DPNOTE ---
Faxed FS, H&P, most recent PN & PT notes, OP note to [facility] per Amalia on 05/20/20. Karly Lopez CM Asst.
[2020-05-20 15:40] VITALS: BP 113/64; PULSE 72; RESP 17; TEMP 37; O2SAT 100
[2020-05-20] MEDS: ACETAMINOPHEN 325 MG TABLET 975 MG PO (20:11)
[2020-05-20] MEDS: ASPIRIN EC 81 MG TABLET PO (20:11)
[2020-05-20 20:15] VITALS: BP 154/70; PULSE 75; RESP 18; TEMP 36.2; O2SAT 98
[2020-05-21 03:05] VITALS: BP 128/74; PULSE 68; RESP 14; TEMP 36.5; O2SAT 99
[2020-05-21] MEDS: RYTARY 2 EACH PO ×2 (03:11→12:24)
--- NOTE | 2020-05-21 05:51 | PC.NURSE ---
Pt is A and O to self and situation. VSS. She used BSC, voided 600 mLs clear yellow. Pt was unable to bear weight effectively when assisting to BSC. She dropped with gait belt and SBA x 2. She was able to sleep mosts of noc shift. She took her medications with water without issue. Spouse Tarik in is the room. Pt dressing is D and I with quarter sized shadow drainage. Pt forgets to keep affected arm in sling at times. She has L arm pain with movement, with + CMS in that limb.
--- NOTE | 2020-05-21 07:46 | PM.PN.1 ---
Subjective Subjective Date Patient Seen: 05/21/20 Time Patient Seen: 07:46 Interval history: Patient is POD#3 s/p ORIF of left clavical with Dr. Bell. She has been taking Tylenol for pain. Working with PT/OT. No complaints. Exam Vital Signs (past 8 hours): - 05/21/20 03:05 Temperature 97.7 F Pulse Rate 68 Respiratory Rate 14 Blood Pressure 128/74 Pulse Oximetry 99 Oxygen Delivery Method Room Air Oxygen Flow Rate 0 Narrative Exam Narrative: 75 year old female resting in bed. Patient was awoken from sleep and is not amenable to exam. Dressing in place is CDI with small area of shadow drainage. Objective Labs Result Diagrams: 05/19/20 05:28 Assessment & Plan Assessment & Plan narrative: Postop day 3 status post open reduction internal fixation left clavicle fracture continue sling left upper extremity. Nonweightbearing left upper extremity. Patient does have Parkinson's and she has been slow to progress as she needs to get back onto her regular scheduled Parkinson's meds. was at bedside and states he feels she is essesntially at her baseline. Continue to mobilize with PT. Possible discharge to home with home health later today.
[2020-05-21 08:00] VITALS: BP 129/79; PULSE 64; RESP 15; TEMP 36.6; O2SAT 100
[2020-05-21] MEDS: RYTARY 3 EACH PO (08:01)
[2020-05-21] MEDS: DOCUSATE 100 MG CAPSULE PO (08:40)
[2020-05-21] MEDS: ACETAMINOPHEN 325 MG TABLET 975 MG PO (08:40)
[2020-05-21] MEDS: ASPIRIN EC 81 MG TABLET PO (08:40)
[2020-05-21] MEDS: RIVASTIGMINE TARTRATE 4.5 MG 4.5 EACH PO (09:57)
[2020-05-21] MEDS: CARBIDOPA-LEVODOPA 25/100 TABLET 1 EACH PO ×2 (09:57→12:24)
[2020-05-21] MEDS: SERTRALINE 50 MG TABLET 25 MG PO (10:02)
--- NOTE | 2020-05-21 10:37 | PT.IPTN ---
Current Diagnoses Fracture of unspecified part of left clavicle, initial encounter for closed fracture (05/19/20) Surgery Performed Operation Date: 05/18/20 16:45 Actual Procedures p ORIF Clavicle Fracture(Left) - Ric Bell MD Physical Therapy Treatment Note M2 PT-IP Current Condition Start: 05/19/20 12:13 Freq: NEEDED Status: Active Protocol: Document 05/19/20 10:45 AB (Rec: 05/19/20 12:35 AB [id number]) Physical Therapy Current Condition Current Condition Evaluation Date 05/19/20 Treatment Diagnosis L clavicle fx s/p ORIF; difficulty in walking Onset Date 05/18/20 Precautions Brace LUE sling Weight Bearing Status Weight Bearing Status Non-Weight Bearing Allowed Weight Bearing Amount (enter % LUE NWB or #) (%) M3 PT-IP Subjective Start: 05/19/20 12:13 Freq: NEEDED Status: Active Protocol: Document 05/21/20 10:37 AB (Rec: 05/21/20 12:26 AB [id number]) Subjective Physical Therapy Visit Type Type Treatment Note Visit Start Time 10:37 Visit Stop Time 11:35 Total Visit Minutes 58 Number of PULP COOKER Visits 0 Physical Therapy Visit Comments Patient Comments pt is agreeable to do PT M4 PT-IP Mobility and Gait Start: 05/19/20 12:13 Freq: NEEDED Status: Active Protocol: Document 05/21/20 10:37 AB (Rec: 05/21/20 12:26 AB [id number]) PT-Bed Mobility Assessment Supine to Sit Supine to Sit Maximum Assistance,1 Person Assistance PT-Transfer Assessment Sit to and From Stand Sit to and from Stand Maximum Assistance,1 Person Assistance,2 Person Assistance ,Use of Upper Extremities Equipment Transfer Assistive Device Gait Belt,Straight Cane Orthotic/Prosthetic Devices or Brace: No Transfers Transfer Destination Chair Transfer Technique ambulated using walking stick Transfer Ability Level of Assist Maximum Assistance,2 Person Assistance,Use of Upper Extremities Comments Mobility Comments pt more alert and able to follow one step commands today . caregiver training conducted as spouse wanting to take pt home and not go to SNF. pt completed supine to sit max A and max cues. spouse was able to put sling on and safety belt on. completed sit to stand max A x 1-2 and max cues with spouse assistng and PT. pt ambulated towards the chair using walking stick max A x 2 and max cues. pt presents with scissoring gait and requires cues and assist with weight shifting to correct deviation. pt sat on chair. informed spouse regarding safety and recommendation of 2 person assist especially with ambulation. recommending use of transport chair for pt if spouse is the only person that can help pt so that spouse will only need to assist pt with transfers. pt has steps to get into the house. completed up/down 1 step using walking stick max A and max cues. increase scissoring step noted. spouse stated that his son and daughter will be at home when pt discharge and will be able to provide 2 person assist, if not, spouse stated that they will lift pt on the transport chair to get up into the bedroom level and pt will stay on that level of the house. educated pt and spouse regarding safety. spouse understood and agreed. positioned pt on chair. call light and table placed within reach. informed [facility] that pt is up on the chair and will need a chair alarm. Gait Assessment Gait Gait Assistance Required: Maximum Assistance,2 Person Assist Distance (Feet) 12 Able to Maintain Weight Bearing Status Yes During Gait Assistive Devices Assistive Device Gait Belt,Straight Cane Gait Deviations General Gait Pattern Antalgic,Ataxic,Decreased Stride Length,Decreased Feet Clearance,Narrow Based Gait, Step-to Gait Factors Limiting Gait Function Factors Limiting Gait Function Decreased Activity Tolerance, Decreased Strength,Difficulty Following Directions, Incoordination,Poor Balance, Poor Safety Awareness Comments Gait Comments pls refer to mobility section for details. presents with scissoring gait Stair Climbing Assessment Evaluation Level of Assist On Stairs Maximal Assistance,2 Person Assistance Devices Stair Climbing Assistive Devices Straight Cane Technique/Endurance Stair Climbing Direction Ascend and Descend Stair Climbing Technique Step to Step Number of Steps Climbed 1 Stair Climbing Set # Repetitions (reps) 1 M5 PT-IP Objective Assessments Start: 05/19/20 12:13 Freq: NEEDED Status: Active Protocol: Document 05/19/20 10:45 AB (Rec: 05/19/20 12:35 AB [id number]) Orientation Orientation/Cognition Level of Alertness Lethargic Strength Comments Strength Comments pt unable to follow directions and MMT not tested Muscle Tone Muscle Tone WNL No Muscle Tone Location Bilateral Lower Extremity Type of Tone Rigidity Severity of Tone Severe M6 PT-IP Treatment Start: 05/19/20 12:13 Freq: NEEDED Status: Active Protocol: Document 05/21/20 10:37 AB (Rec: 05/21/20 12:26 AB [id number]) Physical Therapy Treatment Education Education Provided Precautions,Weight Bearing Status,Safety Brace Education Donning,Jasper,Caregiver Other Treatments Other Treatment Performed caregiver training for don/ doff of sling: spouse was able to complete M7 PT-IP Assessment and Plan Start: 05/19/20 12:13 Freq: NEEDED Status: Active Protocol: Document 05/21/20 10:37 AB (Rec: 05/21/20 12:26 AB [id number]) PT Summary Assessment and Plan Potential Rehabilitation Potential Good Summary Impairments Pain,ROM,Strength,Balance, Coordination,Sensation,Tone, Cognition,Bed Mobility, Transfers,Gait,Activity Tolerance Progress Towards Goals Slow Progress due to Medical Issues,Slow Progress - Other Assessment Summary pt's mentation is better today and able to follow 1 step commands although inconsistently. spouse wanting to take pt home and not go to SNF. caregiver training conducted and educated on recommendations for safety. spouse understood and agreed. pt will require homehealth PT when she goes home. Goals Bed Mobility Goal Moderate Assistance Transfer Goal Moderate Assistance,Cane Gait Goal Moderate Assistance,Cane,Lamine Walker Gait Distance 50 Other Goals up/down 10 steps L rail mod A Days to Meet Goals 10 Frequency of Treatment Frequency Of Treatment Once a Day Treatment Plan Physical Therapy Treatment Plan Bed Mobility Training,Transfer Training,Gait Training, Therapeutic Exercise,Balance Retraining,Post Op Education, Discharge Planning,Hot or Cold Pack,Neuromuscular Re-ed, Coordination Retraining,Manual Therapy Other Recommendations and Next Treatment transfers Focus Recommendations To Nursing Amount of Assist Needed 2 Person Assist Discharge Recommendations PT Discharge Recommendations Home with 22/01 Assist,Home Health,SNF Rehab Transportation Needs at Discharge Private Vehicle,Wheelchair/ Cabulance
--- NOTE | 2020-05-21 12:29 | OT.IP.TRT ---
Current Diagnoses Fracture of unspecified part of left clavicle, initial encounter for closed fracture (05/19/20) Surgery Performed Operation Date: 05/18/20 16:45 Actual Procedures p ORIF Clavicle Fracture(Left) - Ric Bell MD Occupational Therapy Treatment Note M2 OT-IP Current Condition Start: 05/20/20 14:49 Freq: Status: Active Protocol: Document 05/20/20 08:56 [facility] (Rec: 05/20/20 15:26 [facility] [id number]) Occupational Therapy Current Condition Current Condition Evaluation Date 05/20/20 Treatment Diagnosis Left Clavicle fx s/p ORIF, NWB LUE Diagnosis Onset Date 05/19/20 Weight Bearing Status Weight Bearing Status Non-Weight Bearing Allowed Weight Bearing Amount (enter % NWB LUE, Sling on LUE or #) (%) M3 OT- IP Subjective and Pain Start: 05/20/20 14:49 Freq: Status: Active Protocol: Document 05/21/20 14:47 CGR (Rec: 05/21/20 14:52 CGR [id number]) OT- Subjective Occupational Therapy Visit Type Type Progress Note Visit Start Time 12:03 Visit Stop Time 12:29 Total Visit Minutes 26 OT Pain Assessment Pain When Pain Assessed At Rest Pain Present Pain Present Denied Pain M4 OT- IP ADL's Start: 05/20/20 14:49 Freq: Status: Active Protocol: Document 05/21/20 14:47 CGR (Rec: 05/21/20 14:52 CGR [id number]) OT INS-Enol-Mtopise General Evaluation Self-Feeding Ability Standby Assistance Comments OT Self-Feeding Comments lunch OT ADL-Grooming Comments OT Grooming Comments Not performed OT ADL-Oral Care Comments Oral Care Comments Not performed OT ADL-Dressing Comments OT Dressing Comments Not performed OT ADL-Toileting Comments OT Toileting Comments Not performed OT ADL-Bathing Comments OT Bathing Comments Not performed M5 OT- IP IADL's Start: 05/20/20 14:49 Freq: Status: Active Protocol: Document 05/20/20 08:56 [facility] (Rec: 05/20/20 15:26 [facility] [id number]) OT-Instrumental Activities of Daily Living Home Safety Awareness Awareness of Need for Assistance at Home Decreased Awareness Ability to Problem Solve Emergency Unable to Problem Solve Situations Medication Management Medication Management Caregiver Administers Money Management Money Management Caregiver Provides Assistance Meal Preparation Meal Preparation Caregiver Provides Assist Practice Management Consultant Practice Management Consultant Caregiver Provides Assist Driving Driving Caregiver Provides Assist M6 OT- IP Functional Cognition Start: 05/20/20 14:49 Freq: Status: Active Protocol: Document 05/20/20 08:56 [facility] (Rec: 05/20/20 15:26 [facility] [id number]) Cognitive Factors Limiting Selfcare Function Cognitive Ability Level of Alertness Confusional State Patient Orientation Name Attention Span Ability Capable of Focused Attention, Unable to Focus,Unable to Sustain Attention Ability to Follow Commands Able to Follow One Step Commands with Increased Time, Able to Follow One Step Commands with Repetition Memory Description Short Term Impaired,Transportation Technician Impaired,Working Impaired Safety Awareness Underestimates Need for Assistance Problem Solving Ability Unable to Identify Errors, Needs Assist to Identify Solutions Cognitive Comments Cognitive Assessment Comments Pt mainly just oreuntated to name. Pt needing step by step instructions to help sequence through task of grooming. At times needing tactile cues. Pt does not remember that she had surgery or even aware which clavicle was operated on . Pt needing constant reminders to not put weight on her LUE. OT- Vision and Hearing OT- Hearing Assessment OT- Hearing Assessment WFL M7 OT- IP Mobility and Balance Start: 05/20/20 14:49 Freq: Status: Active Protocol: Document 05/20/20 08:56 [facility] (Rec: 05/20/20 15:26 [facility] [id number]) OT- Bed Mobility Assessment Sit to Supine Sit to Supine Assist Maximum Assistance,1 Person Assistance OT-Transfer Assessment Sit to and From Stand Sit to and from Stand Minimal Assistance Transfers Transfer Ability Maximum Assistance,1 Person Assistance Technique Transfer Destination Bed,Chair Transfer Technique Stand Step Pivot Devices Transfer Assistive Devices Gait Belt,Straight Cane Comments Mobility Comments Pt able to stand with JEN from the hospital bed as already sitting at the edge of the bed with her . Pt using the back of her legs to assist from the bed to egg processing supervisor addition to JEN form therapist. HAd pt's bring up pt's walking sitck and able to take steps aroing the bed with MAX A X1 and the walking stick in pt's right hand . Pt tends to cross her legs and leans. Pt's able to assist pt , but pt tending to want to hold onto his hand with her left hand. OT- Gait Assessment Comments Gait Ability Comments MAX X 1 with walking stick in right hand for pt. At this time for nursign best to do twoperson asisst stand pivot. OT- Balance Assessment Sitting Balance and Reactions Static Sitting Balance Ability Good Dynamic Sitting Balance Ability Fair Standing Balance and Reactions Static Standing Balance Ability Poor Dynamic Standing Balance Ability Poor M8 OT- IP Objective Assessments Start: 05/20/20 14:49 Freq: Status: Active Protocol: Document 05/20/20 08:56 [facility] (Rec: 05/20/20 15:26 [facility] [id number]) OT Gross Range of Motion Upper Extremity Range of Motion Assessment Left Impaired OT-Muscle Tone Assessment Muscle Tone WNL Yes OT Sensation Assessment Edema Edema Comments LUe swollen, pt able to open and close her left hand. M9 OT- IP Assessment and Plan Start: 05/20/20 14:49 Freq: Status: Active Protocol: Document 05/21/20 14:47 CGR (Rec: 05/21/20 14:52 CGR [id number]) OT Summary Assessment and Plan Potential Rehabilitation Potential Fair Analytic Complexity at Evaluation Low Summary OT Impairments Pain,Strength,Balance, Functional Cognition, Functional Mobility,Grooming, Dressing,Toileting,Bathing, Toilet Transfers Progress Towards Goals Progressing Toward Goals,Slow Progress due to Pain,Slow Progress due to Medical Issues ,Slow Progress due to Cognition Assessment Summary Most of session spent discussing patient with pt's for caregiver training . Educated on doffing and donning of UB clothing and sling. Pt sitting up in chair and feeds with set up and SBA. Pt's is most concerned aobut keeping patient safe while he performs activities like toileting and cooking. Recommended different activities and provided more resources. No further OT needs at this time. Pt planned for discharge home today. Goals Self-Feeding Goal Standby Assistance Grooming Goal Standby Assistance Dressing Goal Minimal Assistance Toileting Goal Minimal Assistance Bathing Goal Moderate Assistance Toilet Transfer Goal Minimal Assistance Shower Transfer Goal Minimal Assistance Patient/Caregiver Education Goal Demonstrate Post-Op Precautions,Caregiver Independent Assisting Patient Days to Meet Goals 15 Frequency of Treatment Frequency Of Treatment Once a Day Treatment Plan OT Treatment Plan ADL Training,Functional Cognition Training,Functional Mobility,Patient/Family Education,Discharge Planning Other Treatment Recommendations and Next Caregiver training for sling Treatment Focus management, equipment needs, and how to assist pt for Adl and mobility needs. Discharge Recommendations OT Discharge Recommendations Home with 22/01 Assist,Home Health,SNF Rehab Home Equipment Needs BSC Transportation Needs at Discharge Private Vehicle,Wheelchair/ Cabulance
--- NOTE | 2020-05-21 13:03 | CM.DPC ---
Addendum entered by Amalia Clark LPN 05/21/20 13:20: Face/Face document completed. This and d/c progress note from SHERMAN Garcia as well as final d/c orders are given now to CMW who will fax to [facility]. Original Note: DCP: continued: Ortho SHERMAN Garcia is here now and confirms pt is stable for a d/c to home with family support and [facility] RN/OTPT/FUEL CELL TEST ENGINEER/WELT EDGE ROUNDER. Have called [facility] to alert them to the d/cd today and to ask when they will be able to see pt. Am told by [facility] that they do not work on weekends in this area but can see pt Sunday or Sunday. ( (05/24 or ). No other HH agency services [facility]. Met now with pt and her Tarik. Tarik says they did have a family meeting yesterday evening and they have a not perfect but better than we did plan for increased family help and some possibilities of more private caregivers. PT and OT have worked with them on a home plan and Tarik notes they gave him many helpful ideas about how to care for his while knowing that she needs 1/1 close attention at all time. Updated Tarik on when to expect [facility]. CLARISSA Scherer is updated. Pt and Tarik will be taking the [facility] home later this afternoon.
--- NOTE | 2020-05-21 13:23 | CM.DPNOTE ---
Faxed Face to Face, order, med list and PN to [facility] on 05/21/20 per Amalia. Will scan fax confirmation sheet. Karly Lopez CM Asst.
--- NOTE | 2020-05-21 14:23 | PC.NURSE ---
Day shift note: Patient awake, alert, and oriented to self and situation. Up OOB to chair. CMS to LUE intact. Feeding self in chair for lunch, tolerating diet. Up OOB to chair with FWW, 1PA. 1PA required to dress. Home Health arrangements made, confirmed with Amalia. at bedside providing supportive care. Aquacel to anterior left clavicle, with minimal shadow drainage. No new active bleeding noted. Discharge instructions given to both, patient and Tarik. Discussed importance of F/U with Dr. venegas in 2 weeks, s/sx of infections, mobility restrictions, and activity. Verbalized understanding of instructions. Home via private vehicle in stable condition.
== END 2020-05-21 14:00 | disposition home health service (06) | DRG 517 ==
PROVIDERS: Admitting Provider Orthopaedic Surgery Adult Reconstructive Orthopaedic Surgery; PCP Student in an Organized Health Care Education/Training Program; Referring Provider Orthopaedic Surgery Adult Reconstructive Orthopaedic Surgery; Visit Provider Orthopaedic Surgery Adult Reconstructive Orthopaedic Surgery
PROC: 0PSB04Z Reposition Left Clavicle with Internal Fixation Device, Open Approach (ICD-10-PCS; CPT 23515; principal; 2020-05-18 16:45)
DX: S42.022A Displaced fracture of shaft of left clavicle, initial encounter for closed fracture (principal); G20 Parkinson's disease; F02.80 Dementia in other diseases classified elsewhere, unspecified severity, without behavioral disturbance, psychotic disturbance, mood disturbance, and anxiety; Z11.59 Encounter for screening for other viral diseases; W18.30XA Fall on same level, unspecified, initial encounter
CPT/HCPCS: 36415; 36592; 71045; 73000; 76000; 85027; 87635; 97116; 97162; 97165; 97530; 97535; J0330; J0690; J1100; J2405; J2704; J3010

== ENCOUNTER → 2020-08-05 11:02 | Outpatient (CLI) | payer MEDICARE, OTHER, SELFPAY ==
[2020-05-18 21:31] VITALS: BMI 18.3
[2020-08-05] MEDS: COVID-19 VACC #1, MRNA(MOD) 100 MCG/0.5 ML VIAL IM (11:17)
== END ==
PROVIDERS: PCP Student in an Organized Health Care Education/Training Program; Visit Provider Internal Medicine
DX: Z23 Encounter for immunization (principal)
CPT/HCPCS: 0011A; 91301

== ENCOUNTER → 2020-08-07 11:19 | Outpatient (CLI) | payer MEDICARE, OTHER, SELFPAY ==
[2020-05-18 21:31] VITALS: BMI 18.3
[2020-08-07 11:58] LABS: Appearance Urine UA CLEAR; Bacteria Urine None Seen; Bilirubin Urine UA NEGATIVE (NEGATIVE); Color Urine UA YELLOW; Glucose Urine UA NEGATIVE (Negative); Ketones Urine UA TRACE (NEGATIVE); Leukocyte Esterase Urine UA TRACE (NEGATIVE); Nitrite Urine UA NEGATIVE (Negative); Occult Blood Urine UA NEGATIVE (Negative); Protein Urine UA NEGATIVE (Negative); RBC Urine None Seen (0-5/HPF); Specific Gravity Urine UA 1.025 (1.000-1.035); Urobilinogen Urine UA 0.2 E.U./dL (0.2)
[2020-08-07 12:09] LABS: pH Urine UA 5.5 (4.5-8.0)
[2020-08-07 12:41] LABS: Amorphous Sediment Urine 1+; Culture Indicated Urine Cult Not Indicated; Mucus Urine 2+ (Negative); Squamous Epithelial Cell Urine 5-10 /HPF (0-5/HPF); WBC Urine 5-10/HPF (0-5/HPF)
== END ==
PROVIDERS: PCP Student in an Organized Health Care Education/Training Program; Referring Provider Psychiatry & Neurology Neurology; Visit Provider Psychiatry & Neurology Neurology
DX: G20 Parkinson's disease (principal); F02.81 Dementia in other diseases classified elsewhere, unspecified severity, with behavioral disturbance; R41.0 Disorientation, unspecified
CPT/HCPCS: 81001

== ENCOUNTER → 2020-09-02 11:17 | Outpatient (CLI) | payer MEDICARE, OTHER, SELFPAY ==
[2020-05-18 21:31] VITALS: BMI 18.3
[2020-09-02] MEDS: COVID-19 VACC #2, MRNA(MOD) 100 MCG/0.5 ML VIAL IM (11:35)
== END ==
PROVIDERS: PCP Student in an Organized Health Care Education/Training Program; Visit Provider Internal Medicine
DX: Z23 Encounter for immunization (principal)
CPT/HCPCS: 0012A; 91301